=== PATIENT | female | born 1970 | race Caucasian/White ===

== ENCOUNTER → 2016-12-04 | Outpatient (CLI) | payer OTHER ==
--- NOTE | 2016-12-05 02:38 | REP ---
Clinical: bronchitis . Comparison: 03/01/2015 . Technique: PA and lateral. Findings: The mediastinum and cardiac silhouette are normal. The lung mancia are clear and without acute consolidation, effusion, or pneumothorax. The skeletal structures are intact and normal. Impression: 1. No acute cardiopulmonary process. Signed by Franklin Baez MD 12/05/2016 02:29 A
== END ==
LOC: M RAD 12:52
PROVIDERS: ATTEND Family Medicine
DX: R91.8 Other nonspecific abnormal finding of lung field (principal)

== ENCOUNTER → 2016-12-04 | Outpatient (REF) | payer OTHER ==
[2016-12-04 12:35] LABS: BASO % 0.6 % (0.0-1.0); EOS # 0.2 K/mm3 (0.0-0.50); EOS % 2.4 % (0.0-3.0); LARGE UNSTAINED CELL # 0.1 K/mm3 (0.0-0.4); LARGE UNSTAINED CELL % 1.5 % (0.0-4.0); LYMPH # 2.5 K/mm3 (1.5-4.5); LYMPH % 29.3 % (24.0-44.0); MEAN CORPUSCULAR HEMOGLOBIN 31.5 pg (27.0-33.0); MEAN CORPUSCULAR HGB CONC 34.2 g/dl (32.0-36.5); MONO # 0.5 K/mm3 (0.0-0.8); MONO % 6.1 % (0.0-5.0); NEUTROPHILS # 4.8 K/mm3 (1.8-7.7); PLATELET COUNT, AUTOMATED 399 k/mm3 (150-450); RED CELL DISTRIBUTION WIDTH 12.3 % (11.5-14.5); WHITE BLOOD COUNT 8.1 K/mm3 (4.0-10.0)
[2016-12-04 13:23] LABS: ALBUMIN 3.7 GM/DL (3.2-5.2); ALBUMIN/GLOBULIN RATIO 1.12 (1.00-1.93); ALKALINE PHOSPHATASE 70 U/L (45-117); ALT/SGPT 19 U/L (12-78); ANION GAP 9 MEQ/L (8-16); AST/SGOT 17 U/L (15-37); BILIRUBIN,TOTAL 0.9 MG/DL (0.2-1.0); BLOOD UREA NITROGEN 18 MG/DL (7-18); CALCIUM LEVEL 9.1 MG/DL (8.5-10.1); CARBON DIOXIDE LEVEL 28 MEQ/L (21-32); CHLORIDE LEVEL 102 MEQ/L (98-107); CHOLESTEROL LEVEL 211 MG/DL (<200); GLOMERULAR FILTRATION RATE > 60.0 (>58); GLUCOSE, FASTING 83 MG/DL (70-105); POTASSIUM SERUM 4.5 MEQ/L (3.5-5.1); SODIUM LEVEL 139 MEQ/L (136-145); TRIGLYCERIDES LEVEL 113 MG/DL (<150)
== END ==
LOC: M SFHCADAM 10:40
PROVIDERS: ATTEND Family Medicine
DX: Z13.220 Encounter for screening for lipoid disorders (principal); Z11.4 Encounter for screening for human immunodeficiency virus [HIV]; R05 Cough

== ENCOUNTER → 2016-12-09 | Outpatient (CLI) | payer OTHER ==
--- NOTE | 2016-12-09 12:58 | REPMRS ---
Patient History The patient states she has not had a clinical breast exam in over a year. denied. Family history of breast cancer in mother and breast cancer in maternal grandmother. Digital Mammo Screening Bilat: December 09, 2016 - Exam #: [id number] Bilateral CC and MLO view(s) were taken. Technologist: Karin Babb, Technologist Prior study comparison: March 14, 2014, left breast digital mammo diagnostic unilateral performed at [facility]. 2013, digital bilateral screening mammo, performed at [facility]. FINDINGS: The breast tissue is heterogeneously dense. This may lower the sensitivity of mammography. There has been no change in the appearance of the mammogram from the prior studies. There is a moderate amount of residual fibroglandular tissue which is fairly symmetric. There is no interval development of dominant mass, areas of architectural distortion, or clustered microcalcification typical of malignancy. ASSESSMENT: BI-RADS/ACR category 1 mammogram. Negative. I would recommend MRI of the breasts, given the dense breast parenchyma and family history. Recommendation Routine screening mammogram in 1 year (for women over age 40). This mammogram was interpreted with the aid of an FDA-approved computer-aided dectection system. Electronically Signed By: Christiano Mackey MD 12/09/16 [id number]
== END ==
LOC: M RAD 09:55
PROVIDERS: ATTEND Family Medicine
DX: Z12.31 Encounter for screening mammogram for malignant neoplasm of breast (principal)

== ENCOUNTER 2021-10-14 12:59 | Emergency (ER) | payer BC, OTHER, SELFPAY ==
[2021-10-14 13:00] VITALS: BP 140/90
[2021-10-14] MEDS ORDERED: METR-265 PO (14:17)
[2021-10-14] MEDS ORDERED: CIPR250T3 PO (14:17)
== END 2021-10-14 15:00 | disposition home or self-care (01) ==
LOC: M ED 12:59
DX: K57.92 Diverticulitis of intestine, part unspecified, without perforation or abscess without bleeding (principal); R10.32 Left lower quadrant pain; F10.10 Alcohol abuse, uncomplicated

== ENCOUNTER 2021-10-18 20:47 | Inpatient (IN) | payer BC ==
[~2021-10-18] VITALS: Ht 160 cm; Wt 70.0 kg
[~2021-10-18 20:47] MED LIST: CIPR250T3 PO; METR-265 PO
[2021-10-18] MEDS ORDERED: IBUP-1022 PO (21:00)
[2021-10-18 21:58] LABS: BASO % 0.3 % (0.0-1.0); EOS # 0.1 10^3/uL (0.0-0.5); EOS % 0.5 % (0.0-3.0); HEMATOCRIT 41.3 % (36.0-47.0); HEMOGLOBIN 14.6 g/dl (12.0-15.5); LYMPH # 1.3 10^3/uL (1.5-5.0); LYMPH % 9.1 % (24.0-44.0); MEAN CORPUSCULAR HEMOGLOBIN 31.8 pg (27.0-33.0); MEAN CORPUSCULAR HGB CONC 35.4 g/dl (32.0-36.5); MONO # 0.8 10^3/uL (0.0-0.8); MONO % 5.2 % (2.0-8.0); NEUTROPHILS # 12.4 10^3/uL (1.5-8.5); NEUTROPHILS % 84.5 % (36.0-66.0); PLATELET COUNT, AUTOMATED 417 10^3/uL (150-450); RED BLOOD COUNT 4.59 10^6/uL (4.00-5.40); WHITE BLOOD COUNT 14.6 10^3/uL (4.0-10.0)
[2021-10-18 22:24] LABS: ALBUMIN 3.6 GM/DL (3.2-5.2); BILIRUBIN,DIRECT 0.2 MG/DL (0.0-0.2); BILIRUBIN,TOTAL 0.5 MG/DL (0.2-1.0); CALCIUM LEVEL 8.9 MG/DL (8.5-10.1); CREATININE FOR GFR 2.54 MG/DL (0.55-1.30); GLOMERULAR FILTRATION RATE 21.2 (>51); POTASSIUM SERUM 3.5 MEQ/L (3.5-5.1); TOTAL PROTEIN 6.8 GM/DL (6.4-8.2)
[2021-10-18] MEDS ORDERED: ONDANSETRON 4MG/2ML VIAL IV ONE (23:30)
[2021-10-18] MEDS ORDERED: MORPHINE 4 MG/ML 1ML VIAL/SYRINGE IV ONE (23:35)
[2021-10-18] MEDS ORDERED: GASTROGRAFIN SOLUTION 30ML PO SCH (23:55)
[2021-10-18] MEDS ORDERED: NS 1,000 ML IV ONE ×2 (23:55)
[2021-10-19] MEDS: READI-CAT 2 PO SCH ×2 (00:23→01:19)
[2021-10-19] MEDS ORDERED: METOCLOPRAMIDE INJ 10MG/2ML VIAL (J2765 PER 1) IV ONE ×2 (01:20→01:35)
[2021-10-19] MEDS ORDERED: METR-265 PO (02:04)
[2021-10-19] MEDS ORDERED: CIPR500T39 PO (02:04)
[2021-10-19] MEDS ORDERED: IBUP80TA PO (02:10)
[2021-10-19] MEDS ORDERED: HOME MED LIST COMPLETE! XX SCH (02:15)
[2021-10-19] MEDS ORDERED: PIPERACILLIN/TAZOBACTAM SOD 3.375 GM in D5W MINI-BAG PLUS 50 ML IV ONE (03:10)
[2021-10-19] MEDS ORDERED: cefTRIAXone SOD 1 GM in D5W MINI-BAG PLUS 50 ML IV ONE (03:20)
[2021-10-19] MEDS ORDERED: KETOROLAC 30 MG/ML 1ML VIAL IV PRN (03:20)
[2021-10-19] MEDS ORDERED: MORPHINE 4 MG/ML 1ML VIAL/SYRINGE IV PRN (03:20)
[2021-10-19 03:43] LABS: RSV AMPLIFICATION NEGATIVE (NEGATIVE)
[2021-10-19 04:02] LABS: HEMATOCRIT 39.1 % (36.0-47.0); HEMOGLOBIN 13.3 g/dl (12.0-15.5); MEAN CORPUSCULAR HEMOGLOBIN 31.5 pg (27.0-33.0); MEAN CORPUSCULAR VOLUME 92.7 fl (80.0-96.0); PLATELET COUNT, AUTOMATED 363 10^3/uL (150-450); RED BLOOD COUNT 4.22 10^6/uL (4.00-5.40)
[2021-10-19 04:27] LABS: CALCIUM LEVEL 7.7 MG/DL (8.5-10.1); CREATININE FOR GFR 1.99 MG/DL (0.55-1.30); GLOMERULAR FILTRATION RATE 28.1 (>51); POTASSIUM SERUM 3.3 MEQ/L (3.5-5.1)
[2021-10-19] MEDS: NS 1,000 ML IV SCH ×3 (04:38→10:56)
[2021-10-19 05:11] VITALS: BP 152/88
[2021-10-19] MEDS: ONDANSETRON 4MG/2ML VIAL IV PRN ×2 (06:28→22:43)
[2021-10-19 06:40] LABS: CALCIUM LEVEL 8.2 MG/DL (8.5-10.1); CREATININE FOR GFR 2.13 MG/DL (0.55-1.30); POTASSIUM SERUM 3.4 MEQ/L (3.5-5.1)
[2021-10-19] MEDS: PANTOPRAZOLE 40MG VIAL IV SCH (07:53)
[2021-10-19] MEDS: MORPHINE 4 MG/ML 1ML VIAL/SYRINGE IV PRN ×3 (07:55→22:44)
[2021-10-19 10:00] VITALS: BP 134/92
[2021-10-19] MEDS: PIPERACILLIN/TAZOBACTAM SOD 3.375 GM in D5W MINI-BAG PLUS 50 ML IV SCH ×3 (10:56→22:43)
[2021-10-19 14:00] VITALS: BP 139/90
[2021-10-19] MEDS: KCL 40MEQ in NS 1000ML 1,000 ML IV SCH ×2 (14:24→21:19)
[2021-10-19 18:00] VITALS: BP 151/80
[2021-10-19 22:00] VITALS: BP 138/98
[2021-10-20 02:00] VITALS: BP 141/85
[2021-10-20] MEDS: PIPERACILLIN/TAZOBACTAM SOD 3.375 GM in D5W MINI-BAG PLUS 50 ML IV SCH ×4 (04:50→23:21)
[2021-10-20] MEDS: KCL 40MEQ in NS 1000ML 1,000 ML IV SCH ×2 (04:50→11:48)
[2021-10-20 06:00] VITALS: BP 145/92
[2021-10-20] MEDS: MORPHINE 4 MG/ML 1ML VIAL/SYRINGE IV PRN (06:05)
[2021-10-20] MEDS: ONDANSETRON 4MG/2ML VIAL IV PRN (06:05)
[2021-10-20 06:51] LABS: HEMATOCRIT 36.5 % (36.0-47.0); HEMOGLOBIN 12.4 g/dl (12.0-15.5); MEAN CORPUSCULAR HEMOGLOBIN 31.8 pg (27.0-33.0); MEAN CORPUSCULAR VOLUME 93.6 fl (80.0-96.0); PLATELET COUNT, AUTOMATED 292 10^3/uL (150-450); WHITE BLOOD COUNT 7.6 10^3/uL (4.0-10.0)
[2021-10-20 07:24] LABS: CALCIUM LEVEL 7.9 MG/DL (8.5-10.1); CREATININE FOR GFR 1.39 MG/DL (0.55-1.30); GLOMERULAR FILTRATION RATE 42.6 (>51); POTASSIUM SERUM 4.1 MEQ/L (3.5-5.1)
[2021-10-20] MEDS: PANTOPRAZOLE 40MG VIAL IV SCH (09:08)
[2021-10-20 10:00] VITALS: BP 150/90
[2021-10-20 14:00] VITALS: BP 138/82
[2021-10-20] MEDS: KETOROLAC 30 MG/ML 1ML VIAL IV SCH ×2 (15:31→20:39)
[2021-10-20 18:00] VITALS: BP 159/80
[2021-10-20 22:00] VITALS: BP 158/82
[2021-10-21] VITALS (7 sets, daily range): BP systolic 130–182; BP diastolic 82–101
[2021-10-21] MEDS: PIPERACILLIN/TAZOBACTAM SOD 3.375 GM in D5W MINI-BAG PLUS 50 ML IV SCH ×4 (04:08→22:08)
[2021-10-21] MEDS: KETOROLAC 30 MG/ML 1ML VIAL IV SCH ×4 (04:09→22:08)
[2021-10-21] MEDS: ONDANSETRON 4MG/2ML VIAL IV PRN ×2 (06:04→17:29)
[2021-10-21 06:06] LABS: HEMATOCRIT 35.2 % (36.0-47.0); HEMOGLOBIN 11.9 g/dl (12.0-15.5); MEAN CORPUSCULAR HEMOGLOBIN 31.8 pg (27.0-33.0); MEAN CORPUSCULAR HGB CONC 33.8 g/dl (32.0-36.5); MEAN CORPUSCULAR VOLUME 94.1 fl (80.0-96.0); PLATELET COUNT, AUTOMATED 302 10^3/uL (150-450); RED BLOOD COUNT 3.74 10^6/uL (4.00-5.40); WHITE BLOOD COUNT 7.9 10^3/uL (4.0-10.0)
[2021-10-21 06:35] LABS: CALCIUM LEVEL 8.1 MG/DL (8.5-10.1); CREATININE FOR GFR 1.18 MG/DL (0.55-1.30); GLOMERULAR FILTRATION RATE 51.4 (>51); POTASSIUM SERUM 4.4 MEQ/L (3.5-5.1)
[2021-10-21] MEDS: PANTOPRAZOLE 40MG VIAL IV SCH (07:45)
[2021-10-21 13:20] LABS: CK-MB VALUE MASS < 1.0 NG/ML (<3.6); CPK CREATINE PHOSPHOKINASE 58 U/L (26-192); MB/CK RELATIVE INDEX 1.72 (< OR =4)
[2021-10-21 13:28] LABS: FREE T4 1.21 NG/DL (0.76-1.46); THYROID STIMULATING HORMONE 1.25 uIU/ML (0.358-3.740)
[2021-10-21] MEDS: KCL 40MEQ in NS 1000ML 1,000 ML IV SCH ×2 (13:59→20:55)
[2021-10-21] MEDS: amLODIPine 5 MG TAB PO SCH (13:59)
[2021-10-21] MEDS: MORPHINE 4 MG/ML 1ML VIAL/SYRINGE IV PRN (17:34)
[2021-10-22 02:00] VITALS: BP 132/82
[2021-10-22] MEDS: PIPERACILLIN/TAZOBACTAM SOD 3.375 GM in D5W MINI-BAG PLUS 50 ML IV SCH ×4 (04:06→22:26)
[2021-10-22] MEDS: KETOROLAC 30 MG/ML 1ML VIAL IV SCH ×4 (04:06→22:26)
[2021-10-22 06:00] VITALS: BP 122/82
[2021-10-22 06:14] LABS: HEMATOCRIT 34.2 % (36.0-47.0); HEMOGLOBIN 11.6 g/dl (12.0-15.5); MEAN CORPUSCULAR HEMOGLOBIN 31.5 pg (27.0-33.0); MEAN CORPUSCULAR HGB CONC 33.9 g/dl (32.0-36.5); MEAN CORPUSCULAR VOLUME 92.9 fl (80.0-96.0); PLATELET COUNT, AUTOMATED 336 10^3/uL (150-450); RED BLOOD COUNT 3.68 10^6/uL (4.00-5.40); WHITE BLOOD COUNT 8.4 10^3/uL (4.0-10.0)
[2021-10-22 06:33] LABS: BLOOD UREA NITROGEN 10 MG/DL (7-18); CALCIUM LEVEL 7.8 MG/DL (8.5-10.1); CARBON DIOXIDE LEVEL 23 MEQ/L (21-32); CHLORIDE LEVEL 108 MEQ/L (98-107); GLOMERULAR FILTRATION RATE > 60.0 (>51); GLUCOSE, FASTING 84 MG/DL (70-100); POTASSIUM SERUM 4.2 MEQ/L (3.5-5.1); SODIUM LEVEL 139 MEQ/L (136-145)
[2021-10-22] MEDS: PANTOPRAZOLE 40MG VIAL IV SCH (08:39)
[2021-10-22] MEDS: amLODIPine 5 MG TAB PO SCH (08:46)
[2021-10-22 10:00] VITALS: BP 122/79
[2021-10-22 14:00] VITALS: BP 130/80
[2021-10-22] MEDS: KCL 40MEQ in NS 1000ML 1,000 ML IV SCH (15:23)
[2021-10-22 18:00] VITALS: BP 127/78
[2021-10-22 22:00] VITALS: BP 128/78
[2021-10-23 02:00] VITALS: BP 142/80
[2021-10-23] MEDS: KETOROLAC 30 MG/ML 1ML VIAL IV SCH ×4 (03:02→21:28)
[2021-10-23] MEDS: PIPERACILLIN/TAZOBACTAM SOD 3.375 GM in D5W MINI-BAG PLUS 50 ML IV SCH ×4 (05:15→23:08)
[2021-10-23 06:00] VITALS: BP 136/78
[2021-10-23 07:26] LABS: HEMATOCRIT 32.9 % (36.0-47.0); HEMOGLOBIN 11.4 g/dl (12.0-15.5); MEAN CORPUSCULAR HEMOGLOBIN 31.8 pg (27.0-33.0); MEAN CORPUSCULAR HGB CONC 34.7 g/dl (32.0-36.5); MEAN CORPUSCULAR VOLUME 91.9 fl (80.0-96.0); PLATELET COUNT, AUTOMATED 363 10^3/uL (150-450); RED BLOOD COUNT 3.58 10^6/uL (4.00-5.40); WHITE BLOOD COUNT 7.4 10^3/uL (4.0-10.0)
[2021-10-23 07:55] LABS: BLOOD UREA NITROGEN 8 MG/DL (7-18); CALCIUM LEVEL 7.9 MG/DL (8.5-10.1); CARBON DIOXIDE LEVEL 22 MEQ/L (21-32); CHLORIDE LEVEL 105 MEQ/L (98-107); CREATININE FOR GFR 0.74 MG/DL (0.55-1.30); GLOMERULAR FILTRATION RATE > 60.0 (>51); GLUCOSE, FASTING 65 MG/DL (70-100); POTASSIUM SERUM 4.2 MEQ/L (3.5-5.1); SODIUM LEVEL 138 MEQ/L (136-145)
[2021-10-23] MEDS: PANTOPRAZOLE 40MG VIAL IV SCH (08:53)
[2021-10-23] MEDS: amLODIPine 5 MG TAB PO SCH (08:57)
[2021-10-23 10:00] VITALS: BP 138/80
[2021-10-23 14:00] VITALS: BP 130/78
[2021-10-23] MEDS: KCL 40MEQ in NS 1000ML 1,000 ML IV SCH (15:44)
[2021-10-23 18:00] VITALS: BP 130/79
[2021-10-23 22:00] VITALS: BP 152/92
[2021-10-24 02:00] VITALS: BP 142/68
[2021-10-24] MEDS: KETOROLAC 30 MG/ML 1ML VIAL IV SCH ×2 (02:11→10:23)
[2021-10-24] MEDS: PIPERACILLIN/TAZOBACTAM SOD 3.375 GM in D5W MINI-BAG PLUS 50 ML IV SCH ×4 (04:59→22:27)
[2021-10-24 05:30] VITALS: BP 142/66
[2021-10-24 05:59] LABS: HEMOGLOBIN 11.9 g/dl (12.0-15.5); MEAN CORPUSCULAR HEMOGLOBIN 31.6 pg (27.0-33.0); MEAN CORPUSCULAR VOLUME 90.4 fl (80.0-96.0); PLATELET COUNT, AUTOMATED 371 10^3/uL (150-450); RED BLOOD COUNT 3.76 10^6/uL (4.00-5.40); WHITE BLOOD COUNT 5.4 10^3/uL (4.0-10.0)
[2021-10-24 06:23] LABS: BLOOD UREA NITROGEN 5 MG/DL (7-18); CALCIUM LEVEL 8.4 MG/DL (8.5-10.1); CARBON DIOXIDE LEVEL 25 MEQ/L (21-32); CHLORIDE LEVEL 107 MEQ/L (98-107); CREATININE FOR GFR 0.69 MG/DL (0.55-1.30); GLOMERULAR FILTRATION RATE > 60.0 (>51); GLUCOSE, FASTING 76 MG/DL (70-100); POTASSIUM SERUM 4.1 MEQ/L (3.5-5.1); SODIUM LEVEL 141 MEQ/L (136-145)
[2021-10-24] MEDS: amLODIPine 5 MG TAB PO SCH (10:22)
[2021-10-24] MEDS: PANTOPRAZOLE 40MG VIAL IV SCH (10:23)
[2021-10-24] MEDS: KCL 40MEQ in NS 1000ML 1,000 ML IV SCH (10:28)
[2021-10-24] MEDS ORDERED: ISOVUE-370 76% 100ML VIAL As Ordered ONE (11:31)
[2021-10-24] MEDS: GASTROGRAFIN SOLUTION 30ML PO SCH ×2 (11:37→12:08)
[2021-10-24 14:00] VITALS: BP 142/88
[2021-10-24 22:00] VITALS: BP 158/88
[2021-10-25] MEDS: PIPERACILLIN/TAZOBACTAM SOD 3.375 GM in D5W MINI-BAG PLUS 50 ML IV SCH ×4 (05:03→22:44)
[2021-10-25 05:30] VITALS: BP 142/84
[2021-10-25 06:16] LABS: HEMATOCRIT 36.1 % (36.0-47.0); HEMOGLOBIN 12.3 g/dl (12.0-15.5); MEAN CORPUSCULAR HEMOGLOBIN 31.1 pg (27.0-33.0); MEAN CORPUSCULAR HGB CONC 34.1 g/dl (32.0-36.5); MEAN CORPUSCULAR VOLUME 91.2 fl (80.0-96.0); PLATELET COUNT, AUTOMATED 441 10^3/uL (150-450); RED BLOOD COUNT 3.96 10^6/uL (4.00-5.40); WHITE BLOOD COUNT 5.1 10^3/uL (4.0-10.0)
[2021-10-25 06:35] LABS: BLOOD UREA NITROGEN 4 MG/DL (7-18); CALCIUM LEVEL 8.5 MG/DL (8.5-10.1); CARBON DIOXIDE LEVEL 28 MEQ/L (21-32); CHLORIDE LEVEL 103 MEQ/L (98-107); CREATININE FOR GFR 0.72 MG/DL (0.55-1.30); GLOMERULAR FILTRATION RATE > 60.0 (>51); GLUCOSE, FASTING 67 MG/DL (70-100); SODIUM LEVEL 139 MEQ/L (136-145)
[2021-10-25] MEDS: amLODIPine 5 MG TAB PO SCH (09:03)
[2021-10-25] MEDS: PANTOPRAZOLE 40MG VIAL IV SCH (09:03)
[2021-10-25 14:00] VITALS: BP 138/79
[2021-10-25 18:00] VITALS: BP 140/80
[2021-10-25 22:00] VITALS: BP 132/84
[2021-10-26] MEDS: PIPERACILLIN/TAZOBACTAM SOD 3.375 GM in D5W MINI-BAG PLUS 50 ML IV SCH (04:42)
[2021-10-26 06:00] VITALS: BP 136/82
[2021-10-26 09:37] VITALS: BP 134/72
[2021-10-26] MEDS: amLODIPine 5 MG TAB PO SCH (09:37)
[2021-10-26] MEDS: PANTOPRAZOLE 40MG VIAL IV SCH (09:38)
[2021-10-26] MEDS: metroNIDAZOLE (FLAGYL) 500MG TABLET PO SCH ×2 (13:29→21:20)
[2021-10-26] MEDS: PANTOPRAZOLE 40MG TAB (PROTONIX) PO SCH (13:29)
[2021-10-26 14:00] VITALS: BP 134/92
[2021-10-26] MEDS: IBUPROFEN 600MG TAB PO PRN (18:17)
[2021-10-26] MEDS: ACETAMINOPHEN TAB 650MG DOSE (2X325MG) PO PRN (19:54)
[2021-10-26] MEDS: AUGMENTIN 875 MG TAB PO SCH (21:20)
[2021-10-26 22:00] VITALS: BP 130/80
[2021-10-27 06:00] VITALS: BP 130/80
[2021-10-27] MEDS: metroNIDAZOLE (FLAGYL) 500MG TABLET PO SCH ×3 (06:06→22:22)
[2021-10-27] MEDS: PANTOPRAZOLE 40MG TAB (PROTONIX) PO SCH (08:37)
[2021-10-27] MEDS: AUGMENTIN 875 MG TAB PO SCH ×2 (08:37→22:22)
[2021-10-27] MEDS: IBUPROFEN 600MG TAB PO PRN (08:37)
[2021-10-27] MEDS: ACETAMINOPHEN TAB 650MG DOSE (2X325MG) PO PRN (11:03)
[2021-10-27 14:00] VITALS: BP 134/78
[2021-10-27 19:00] VITALS: BP 126/78
[2021-10-27 22:00] VITALS: BP 132/78
[2021-10-28] MEDS: metroNIDAZOLE (FLAGYL) 500MG TABLET PO SCH ×2 (05:39→13:56)
[2021-10-28 06:00] VITALS: BP 134/76
[2021-10-28] MEDS: AUGMENTIN 875 MG TAB PO SCH (09:28)
[2021-10-28] MEDS: PANTOPRAZOLE 40MG TAB (PROTONIX) PO SCH (09:28)
[2021-10-28] MEDS ORDERED: AMOX875T2 PO (11:49)
== END 2021-10-28 14:17 | disposition home or self-care (01) | DRG 244 ==
LOC: M ED 20:47 → M ED INP 10-19 03:16 → M MSPAV 10-19 05:11
PROVIDERS: ADMIT Surgery; ATTEND Internal Medicine Nephrology
DX: K57.20 Diverticulitis of large intestine with perforation and abscess without bleeding (principal); N17.9 Acute kidney failure, unspecified; I10 Essential (primary) hypertension; R00.1 Bradycardia, unspecified

== ENCOUNTER 2021-11-08 10:07 | Inpatient (IN) | payer BC ==
[~2021-11-08] VITALS: Ht 160 cm; Wt 68.0 kg
[~2021-11-08 10:07] MED LIST changes: +AMOX875T2 PO; +CIPR500T39 PO; +IBUP-1022 PO; +IBUP80TA PO
[2021-11-08] MEDS ORDERED: NS 1,000 ML IV ONE (11:15)
[2021-11-08 11:48] LABS: BASO # 0.1 10^3/uL (0.0-0.2); BASO % 0.6 % (0.0-1.0); EOS # 0.3 10^3/uL (0.0-0.5); EOS % 2.9 % (0.0-3.0); HEMATOCRIT 39.3 % (36.0-47.0); HEMOGLOBIN 13.5 g/dl (12.0-15.5); LYMPH # 1.4 10^3/uL (1.5-5.0); LYMPH % 13.6 % (24.0-44.0); MEAN CORPUSCULAR HEMOGLOBIN 31.7 pg (27.0-33.0); MEAN CORPUSCULAR HGB CONC 34.4 g/dl (32.0-36.5); MEAN CORPUSCULAR VOLUME 92.3 fl (80.0-96.0); MONO # 0.6 10^3/uL (0.0-0.8); NEUTROPHILS # 7.7 10^3/uL (1.5-8.5); NEUTROPHILS % 76.5 % (36.0-66.0); PLATELET COUNT, AUTOMATED 376 10^3/uL (150-450); RED BLOOD COUNT 4.26 10^6/uL (4.00-5.40)
[2021-11-08 11:59] LABS: INR 0.81; PARTIAL THROMBOPLASTIN TIME 27.8 SECONDS (25.9-37.0); PROTHROMBIN TIME 11.6 SECONDS (12.7-14.5)
[2021-11-08] MEDS: GASTROGRAFIN SOLUTION 30ML PO SCH ×2 (12:00→13:15)
[2021-11-08 12:12] LABS: ALBUMIN 3.1 GM/DL (3.2-5.2); ALT/SGPT 24 U/L (12-78); BILIRUBIN,DIRECT < 0.1 MG/DL (0.0-0.2); BILIRUBIN,TOTAL 0.2 MG/DL (0.2-1.0); LIPASE 232 U/L (73-393); TOTAL PROTEIN 6.7 GM/DL (6.4-8.2)
[2021-11-08] MEDS ORDERED: ISOVUE-370 76% 100ML VIAL As Ordered ONE (12:28)
[2021-11-08] MEDS ORDERED: ONDANSETRON 4MG/2ML VIAL IV ONE (15:25)
[2021-11-08] MEDS: HYDROMORPHONE HCL 0.5 MG/ 0.5 ML SYRINGE (J1170 PER 1) IV PRN ×2 (15:28→17:04)
[2021-11-08] MEDS ORDERED: PIPERACILLIN/TAZOBACTAM SOD 3.375 GM in D5W MINI-BAG PLUS 50 ML IV ONE (15:35)
[2021-11-08] MEDS ORDERED: cefTRIAXone SOD 2 GM in D5W MINI-BAG PLUS 50 ML IV ONE (15:35)
[2021-11-08] MEDS: NS 1,000 ML IV SCH (15:55)
[2021-11-08] MEDS ORDERED: MORPHINE 2 MG/ML 1ML VIAL IV PRN ×2 (15:55)
[2021-11-08] MEDS ORDERED: HOME MED LIST COMPLETE! XX SCH (16:30)
[2021-11-08] MEDS: KETOROLAC 30 MG/ML 1ML VIAL IV SCH ×2 (18:00→23:03)
[2021-11-08 18:45] VITALS: BP 112/58
[2021-11-08] MEDS: DOCUSATE SODIUM 100MG CAPSULE PO SCH (21:26)
[2021-11-08] MEDS: PIPERACILLIN/TAZOBACTAM SOD 3.375 GM in D5W MINI-BAG PLUS 50 ML IV SCH (21:26)
[2021-11-08 21:28] VITALS: BP 138/88
[2021-11-09] MEDS: HYDROMORPHONE HCL 0.5 MG/ 0.5 ML SYRINGE (J1170 PER 1) IV PRN ×4 (00:15→18:37)
[2021-11-09] MEDS: ONDANSETRON 4MG/2ML VIAL IV PRN ×5 (00:19→21:47)
[2021-11-09 01:58] VITALS: BP 110/88
[2021-11-09] MEDS: PIPERACILLIN/TAZOBACTAM SOD 3.375 GM in D5W MINI-BAG PLUS 50 ML IV SCH ×4 (03:25→21:47)
[2021-11-09] MEDS: NS 1,000 ML IV SCH ×3 (03:25→20:34)
[2021-11-09] MEDS: KETOROLAC 30 MG/ML 1ML VIAL IV SCH ×4 (05:43→23:29)
[2021-11-09 05:50] VITALS: BP 106/78
[2021-11-09 07:40] LABS: HEMOGLOBIN 12.1 g/dl (12.0-15.5); MEAN CORPUSCULAR HEMOGLOBIN 30.9 pg (27.0-33.0); MEAN CORPUSCULAR HGB CONC 33.6 g/dl (32.0-36.5); MEAN CORPUSCULAR VOLUME 91.8 fl (80.0-96.0); PLATELET COUNT, AUTOMATED 277 10^3/uL (150-450); RED BLOOD COUNT 3.92 10^6/uL (4.00-5.40); WHITE BLOOD COUNT 9.8 10^3/uL (4.0-10.0)
[2021-11-09 07:59] LABS: BLOOD UREA NITROGEN 13 MG/DL (7-18); CALCIUM LEVEL 8.1 MG/DL (8.5-10.1); CARBON DIOXIDE LEVEL 27 MEQ/L (21-32); CHLORIDE LEVEL 110 MEQ/L (98-107); CREATININE FOR GFR 0.65 MG/DL (0.55-1.30); GLOMERULAR FILTRATION RATE > 60.0 (>51); GLUCOSE, FASTING 106 MG/DL (70-100); POTASSIUM SERUM 3.6 MEQ/L (3.5-5.1); SODIUM LEVEL 142 MEQ/L (136-145)
[2021-11-09] MEDS: PANTOPRAZOLE 40MG VIAL IV SCH (09:31)
[2021-11-09] MEDS: DOCUSATE SODIUM 100MG CAPSULE PO SCH ×3 (09:31→21:47)
[2021-11-09 10:00] VITALS: BP 134/94
[2021-11-09] MEDS: ACETAMINOPHEN 500 MG TAB PO PRN (12:02)
[2021-11-09 14:00] VITALS: BP 122/84
[2021-11-09 18:00] VITALS: BP 122/84
[2021-11-09 22:00] VITALS: BP 156/102
[2021-11-09] MEDS ORDERED: MORPHINE 2 MG/ML 1ML VIAL IV ONE (22:00)
[2021-11-09] MEDS ORDERED: PROMETHAZINE 25MG/ML 1ML VIAL IV ONE (23:00)
[2021-11-10] VITALS (7 sets, daily range): BP systolic 96–150; BP diastolic 72–91
[2021-11-10] MEDS: HYDROMORPHONE HCL 0.5 MG/ 0.5 ML SYRINGE (J1170 PER 1) IV PRN ×4 (02:25→20:18)
[2021-11-10] MEDS: PIPERACILLIN/TAZOBACTAM SOD 3.375 GM in D5W MINI-BAG PLUS 50 ML IV SCH ×4 (04:13→21:42)
[2021-11-10] MEDS: KETOROLAC 30 MG/ML 1ML VIAL IV SCH ×3 (05:30→18:00)
[2021-11-10 06:59] LABS: HEMATOCRIT 35.1 % (36.0-47.0); HEMOGLOBIN 12.2 g/dl (12.0-15.5); MEAN CORPUSCULAR HGB CONC 34.8 g/dl (32.0-36.5); MEAN CORPUSCULAR VOLUME 92.1 fl (80.0-96.0); PLATELET COUNT, AUTOMATED 246 10^3/uL (150-450); RED BLOOD COUNT 3.81 10^6/uL (4.00-5.40); WHITE BLOOD COUNT 10.2 10^3/uL (4.0-10.0)
[2021-11-10 07:19] LABS: BLOOD UREA NITROGEN 10 MG/DL (7-18); CARBON DIOXIDE LEVEL 26 MEQ/L (21-32); CHLORIDE LEVEL 108 MEQ/L (98-107); CREATININE FOR GFR 0.68 MG/DL (0.55-1.30); GLOMERULAR FILTRATION RATE > 60.0 (>51); GLUCOSE, FASTING 98 MG/DL (70-100); POTASSIUM SERUM 3.2 MEQ/L (3.5-5.1); SODIUM LEVEL 142 MEQ/L (136-145)
[2021-11-10] MEDS: PROMETHAZINE 25MG/ML 1ML VIAL IV PRN ×3 (08:00→19:41)
[2021-11-10] MEDS: PANTOPRAZOLE 40MG VIAL IV SCH (08:33)
[2021-11-10] MEDS: NS 1,000 ML IV SCH ×4 (08:33→23:55)
[2021-11-10] MEDS: DOCUSATE SODIUM 100MG CAPSULE PO SCH ×2 (08:34→21:42)
[2021-11-10] MEDS: ACETAMINOPHEN 500 MG TAB PO PRN (13:13)
[2021-11-10] MEDS: SIMETHICONE 80MG CHEW TAB PO SCH ×2 (16:50→21:43)
[2021-11-11] VITALS: BP 118/78
[2021-11-11] MEDS: KETOROLAC 30 MG/ML 1ML VIAL IV SCH ×4 (00:22→18:18)
[2021-11-11] MEDS: PROMETHAZINE 25MG/ML 1ML VIAL IV PRN ×4 (00:23→20:54)
[2021-11-11] MEDS: HYDROMORPHONE HCL 0.5 MG/ 0.5 ML SYRINGE (J1170 PER 1) IV PRN ×4 (02:55→20:54)
[2021-11-11 04:00] VITALS: BP 112/77
[2021-11-11] MEDS: PIPERACILLIN/TAZOBACTAM SOD 3.375 GM in D5W MINI-BAG PLUS 50 ML IV SCH ×4 (04:06→22:06)
[2021-11-11] MEDS: NS 1,000 ML IV SCH ×2 (06:32→15:45)
[2021-11-11 06:51] LABS: HEMATOCRIT 32.5 % (36.0-47.0); HEMOGLOBIN 11.2 g/dl (12.0-15.5); MEAN CORPUSCULAR HGB CONC 34.5 g/dl (32.0-36.5); MEAN CORPUSCULAR VOLUME 92.9 fl (80.0-96.0); PLATELET COUNT, AUTOMATED 242 10^3/uL (150-450); WHITE BLOOD COUNT 9.4 10^3/uL (4.0-10.0)
[2021-11-11 07:16] LABS: BLOOD UREA NITROGEN 15 MG/DL (7-18); CALCIUM LEVEL 8.2 MG/DL (8.5-10.1); CARBON DIOXIDE LEVEL 24 MEQ/L (21-32); CHLORIDE LEVEL 110 MEQ/L (98-107); GLOMERULAR FILTRATION RATE > 60.0 (>51); GLUCOSE, FASTING 89 MG/DL (70-100); POTASSIUM SERUM 3.5 MEQ/L (3.5-5.1); SODIUM LEVEL 142 MEQ/L (136-145)
[2021-11-11 10:00] VITALS: BP 115/80
[2021-11-11] MEDS: SIMETHICONE 80MG CHEW TAB PO SCH ×4 (10:00→20:47)
[2021-11-11] MEDS: DOCUSATE SODIUM 100MG CAPSULE PO SCH ×2 (10:02→20:46)
[2021-11-11] MEDS: PANTOPRAZOLE 40MG VIAL IV SCH (10:03)
[2021-11-11 14:00] VITALS: BP 120/80
[2021-11-11 21:39] VITALS: BP 123/92
[2021-11-12] VITALS (8 sets, daily range): BP systolic 122–150; BP diastolic 86–99
[2021-11-12] MEDS: NS 1,000 ML IV SCH ×2 (01:48→08:55)
[2021-11-12] MEDS: KETOROLAC 30 MG/ML 1ML VIAL IV SCH ×4 (01:48→18:00)
[2021-11-12] MEDS: PIPERACILLIN/TAZOBACTAM SOD 3.375 GM in D5W MINI-BAG PLUS 50 ML IV SCH ×4 (04:06→22:32)
[2021-11-12] MEDS: PROMETHAZINE 25MG/ML 1ML VIAL IV PRN ×3 (04:15→22:32)
[2021-11-12] MEDS: HYDROMORPHONE HCL 0.5 MG/ 0.5 ML SYRINGE (J1170 PER 1) IV PRN ×2 (04:15→09:59)
[2021-11-12 08:14] LABS: HEMATOCRIT 29.9 % (36.0-47.0); MEAN CORPUSCULAR HEMOGLOBIN 31.3 pg (27.0-33.0); MEAN CORPUSCULAR HGB CONC 33.4 g/dl (32.0-36.5); MEAN CORPUSCULAR VOLUME 93.7 fl (80.0-96.0); PLATELET COUNT, AUTOMATED 226 10^3/uL (150-450); RED BLOOD COUNT 3.19 10^6/uL (4.00-5.40)
[2021-11-12 08:36] LABS: BLOOD UREA NITROGEN 14 MG/DL (7-18); CALCIUM LEVEL 7.9 MG/DL (8.5-10.1); CARBON DIOXIDE LEVEL 25 MEQ/L (21-32); CHLORIDE LEVEL 111 MEQ/L (98-107); CREATININE FOR GFR 0.56 MG/DL (0.55-1.30); GLOMERULAR FILTRATION RATE > 60.0 (>51); GLUCOSE, FASTING 72 MG/DL (70-100); POTASSIUM SERUM 3.1 MEQ/L (3.5-5.1); SODIUM LEVEL 144 MEQ/L (136-145)
[2021-11-12] MEDS: DOCUSATE SODIUM 100MG CAPSULE PO SCH ×2 (08:55→22:32)
[2021-11-12] MEDS: SIMETHICONE 80MG CHEW TAB PO SCH ×3 (08:56→17:00)
[2021-11-12] MEDS: PANTOPRAZOLE 40MG VIAL IV SCH (08:57)
[2021-11-12] MEDS ORDERED: FLUCONAZOLE 100 MG TAB PO SCH (09:00)
[2021-11-12] MEDS ORDERED: KCL 40MEQ in NS 1000ML 1,000 ML IV SCH (09:35)
[2021-11-12] MEDS ORDERED: KCL 10MEQ/100ML SWI (KRUN) 10 MEQ in IV 1 EA IV ONE (10:00)
[2021-11-12] MEDS: GASTROGRAFIN SOLUTION 30ML PO SCH ×2 (11:02→11:38)
[2021-11-12] MEDS: ACETAMINOPHEN 500 MG TAB PO PRN (11:12)
[2021-11-12] MEDS ORDERED: ISOVUE-370 76% 100ML VIAL As Ordered ONE (12:47)
[2021-11-12] MEDS ORDERED: GLUCAGON INJ 1MG VIAL As Ordered ONE (17:23)
[2021-11-12] MEDS ORDERED: SCOPOLAMINE 1MG TRANSDERMAL PATCH TOP ONE (17:55)
[2021-11-12] MEDS ORDERED: SCOPOLAMINE 1MG TRANSDERMAL PATCH As Ordered ONE (18:04)
[2021-11-12] MEDS ORDERED: SUGAMMADEX SODIUM 500 MG/5 ML VIAL (BRIDION) As Ordered ONE (18:54)
[2021-11-12] MEDS ORDERED: ONDANSETRON 4MG/2ML VIAL As Ordered ONE (18:54)
[2021-11-12] MEDS ORDERED: KETOROLAC 60MG 2ML VIAL As Ordered ONE (18:54)
[2021-11-12] MEDS ORDERED: ACETAMINOPHEN 1000MG 100ML IV BTL (OFIRMEV) (J0131 PER 10MG) As Ordered ONE (18:54)
[2021-11-12] MEDS ORDERED: LIDOCAINE 2% 100MG/5ML SDV (FOR ANES.) As Ordered ONE (18:54)
[2021-11-12] MEDS ORDERED: dexameTHASONE 4 MG/ML 1ML VIAL (J1100 PER 1MG) As Ordered ONE (18:54)
[2021-11-12] MEDS ORDERED: ROCURONIUM BROMIDE 50 MG/5 ML VIAL As Ordered ONE (18:54)
[2021-11-12] MEDS ORDERED: MIDAZOLAM INJ 2MG/2ML VIAL (J2250 PER 1MG) As Ordered ONE (18:54)
[2021-11-12] MEDS ORDERED: HYDROmorphone HCL 2MG/ML 1ML VIAL As Ordered ONE (18:54)
[2021-11-12] MEDS ORDERED: fentaNYL 100 MCG/2 ML INJECTION As Ordered ONE (18:55)
[2021-11-12] MEDS ORDERED: propofoL 200 MG/20 ML VIAL As Ordered ONE (18:55)
[2021-11-12] MEDS ORDERED: BUPIVACAINE HCL 0.25% 30ML VIAL As Ordered ONE (19:35)
[2021-11-12] MEDS ORDERED: BUPIVACAINE LIPOSOME/PF 1.3% 20ML VIAL (13.3MG/ML)(EXPAREL) As Ordered ONE (19:35)
[2021-11-12] MEDS ORDERED: IPRATROPIUM 0.5MG/ALBUTEROL 2.5MG INH SOL UD 3ML (DUONEB) NEB PRN (20:30)
[2021-11-12] MEDS ORDERED: HYDROMORPHONE HCL 0.5 MG/ 0.5 ML SYRINGE (J1170 PER 1) IV PRN (20:45)
[2021-11-12] MEDS ORDERED: oxyCODONE 5MG TAB PO PRN (20:45)
[2021-11-12] MEDS ORDERED: LR 1,000 ML IV SCH (20:45)
[2021-11-12] MEDS ORDERED: fentaNYL 100 MCG/2 ML INJECTION IV PRN (20:45)
[2021-11-12] MEDS ORDERED: ONDANSETRON 4MG/2ML VIAL IV PRN (20:45)
[2021-11-12] MEDS: ONDANSETRON 4MG/2ML VIAL IV PRN (21:01)
[2021-11-12] MEDS: KCL 40MEQ in NS 1000ML 1,000 ML IV SCH (22:31)
[2021-11-13] VITALS (7 sets, daily range): BP systolic 140–153; BP diastolic 89–99
[2021-11-13] MEDS: KETOROLAC 30 MG/ML 1ML VIAL IV SCH ×3 (00:13→12:09)
[2021-11-13] MEDS: HYDROMORPHONE HCL 0.5 MG/ 0.5 ML SYRINGE (J1170 PER 1) IV PRN ×5 (01:55→20:57)
[2021-11-13] MEDS: IPRATROPIUM 0.5MG/ALBUTEROL 2.5MG INH SOL UD 3ML (DUONEB) NEB SCH ×4 (02:00→19:16)
[2021-11-13] MEDS: KCL 40MEQ in NS 1000ML 1,000 ML IV SCH ×3 (03:05→17:36)
[2021-11-13] MEDS: PIPERACILLIN/TAZOBACTAM SOD 3.375 GM in D5W MINI-BAG PLUS 50 ML IV SCH ×4 (04:09→20:56)
[2021-11-13 07:11] LABS: HEMATOCRIT 31.2 % (36.0-47.0); HEMOGLOBIN 10.5 g/dl (12.0-15.5); MEAN CORPUSCULAR HEMOGLOBIN 30.7 pg (27.0-33.0); MEAN CORPUSCULAR HGB CONC 33.7 g/dl (32.0-36.5); MEAN CORPUSCULAR VOLUME 91.2 fl (80.0-96.0); PLATELET COUNT, AUTOMATED 276 10^3/uL (150-450); RED BLOOD COUNT 3.42 10^6/uL (4.00-5.40); WHITE BLOOD COUNT 10.9 10^3/uL (4.0-10.0)
[2021-11-13 08:02] LABS: BLOOD UREA NITROGEN 9 MG/DL (7-18); CALCIUM LEVEL 7.7 MG/DL (8.5-10.1); CARBON DIOXIDE LEVEL 24 MEQ/L (21-32); CHLORIDE LEVEL 110 MEQ/L (98-107); CREATININE FOR GFR 0.48 MG/DL (0.55-1.30); GLOMERULAR FILTRATION RATE > 60.0 (>51); GLUCOSE, FASTING 138 MG/DL (70-100); SODIUM LEVEL 142 MEQ/L (136-145)
[2021-11-13] MEDS ORDERED: FLUCONAZOLE 40MG/ML ORAL SUSP 35ML **DRAW UP EXACT DOSE NG SCH (09:00)
[2021-11-13] MEDS: DOCUSATE SODIUM 100MG CAPSULE PO SCH ×2 (09:42→20:56)
[2021-11-13] MEDS: PROMETHAZINE 25MG/ML 1ML VIAL IV PRN ×5 (09:43→21:10)
[2021-11-13] MEDS: PANTOPRAZOLE 40MG VIAL IV SCH (09:43)
[2021-11-13] MEDS ORDERED: FLUCONAZOLE 100 MG TAB PO ONE (15:00)
[2021-11-14] MEDS: IPRATROPIUM 0.5MG/ALBUTEROL 2.5MG INH SOL UD 3ML (DUONEB) NEB SCH ×4 (00:52→19:37)
[2021-11-14 02:00] VITALS: BP 147/83
[2021-11-14] MEDS: KCL 40MEQ in NS 1000ML 1,000 ML IV SCH ×2 (02:18→09:29)
[2021-11-14] MEDS: PROMETHAZINE 25MG/ML 1ML VIAL IV PRN ×3 (03:48→15:32)
[2021-11-14] MEDS: PIPERACILLIN/TAZOBACTAM SOD 3.375 GM in D5W MINI-BAG PLUS 50 ML IV SCH ×4 (04:06→21:26)
[2021-11-14] MEDS: ONDANSETRON 4MG/2ML VIAL IV PRN (06:04)
[2021-11-14] MEDS: HYDROMORPHONE HCL 0.5 MG/ 0.5 ML SYRINGE (J1170 PER 1) IV PRN ×3 (06:04→16:07)
[2021-11-14 09:26] LABS: HEMATOCRIT 28.6 % (36.0-47.0); HEMOGLOBIN 9.7 g/dl (12.0-15.5); MEAN CORPUSCULAR HEMOGLOBIN 31.5 pg (27.0-33.0); MEAN CORPUSCULAR HGB CONC 33.9 g/dl (32.0-36.5); MEAN CORPUSCULAR VOLUME 92.9 fl (80.0-96.0); PLATELET COUNT, AUTOMATED 296 10^3/uL (150-450); RED BLOOD COUNT 3.08 10^6/uL (4.00-5.40); WHITE BLOOD COUNT 9.6 10^3/uL (4.0-10.0)
[2021-11-14] MEDS: PANTOPRAZOLE 40MG VIAL IV SCH (09:30)
[2021-11-14] MEDS: DOCUSATE SODIUM 100MG CAPSULE PO SCH ×2 (09:30→20:04)
[2021-11-14 09:48] LABS: BLOOD UREA NITROGEN 9 MG/DL (7-18); CARBON DIOXIDE LEVEL 24 MEQ/L (21-32); CHLORIDE LEVEL 116 MEQ/L (98-107); CREATININE FOR GFR 0.39 MG/DL (0.55-1.30); GLOMERULAR FILTRATION RATE > 60.0 (>51); GLUCOSE, FASTING 102 MG/DL (70-100); POTASSIUM SERUM 4.3 MEQ/L (3.5-5.1); SODIUM LEVEL 146 MEQ/L (136-145)
[2021-11-14 10:00] VITALS: BP 152/90
[2021-11-14] MEDS: KETOROLAC 30 MG/ML 1ML VIAL IV SCH ×3 (10:55→23:10)
[2021-11-14] MEDS ORDERED: LIDOCAINE 1% MDV 20ML VIAL As Ordered ONE (11:41)
[2021-11-14] MEDS ORDERED: FAMOTIDINE IV BAG 40 MG in IV 1 EA IV SCH (12:00)
[2021-11-14] MEDS: LR 1,000 ML IV SCH ×2 (13:39→18:19)
[2021-11-14] MEDS: FAMOTIDINE 20MG/2ML VIAL IV SCH ×2 (13:43→23:51)
[2021-11-14 14:00] VITALS: BP 150/104
[2021-11-14 18:00] VITALS: BP 178/110
[2021-11-14] MEDS: NITROGLYCERIN 2% OINT 1 GM *U/D* PKT TOP SCH ×2 (18:18→23:51)
[2021-11-14] MEDS: SODIUM CHLORIDE 0.9% INJ 10 ML SYR IV SCH (18:19)
[2021-11-14] MEDS: ACETAMINOPHEN 500 MG TAB PO PRN (20:04)
[2021-11-14 22:00] VITALS: BP 130/84
[2021-11-15] MEDS: IPRATROPIUM 0.5MG/ALBUTEROL 2.5MG INH SOL UD 3ML (DUONEB) NEB SCH ×4 (01:10→20:14)
[2021-11-15] MEDS: PROMETHAZINE 25MG/ML 1ML VIAL IV PRN ×4 (01:24→20:01)
[2021-11-15] MEDS: HYDROMORPHONE HCL 0.5 MG/ 0.5 ML SYRINGE (J1170 PER 1) IV PRN ×4 (01:54→20:36)
[2021-11-15 02:00] VITALS: BP 136/84
[2021-11-15] MEDS: PIPERACILLIN/TAZOBACTAM SOD 3.375 GM in D5W MINI-BAG PLUS 50 ML IV SCH ×4 (03:23→21:08)
[2021-11-15 05:32] VITALS: BP 136/88
[2021-11-15] MEDS: NITROGLYCERIN 2% OINT 1 GM *U/D* PKT TOP SCH (05:32)
[2021-11-15] MEDS: KETOROLAC 30 MG/ML 1ML VIAL IV SCH ×4 (05:33→22:41)
[2021-11-15] MEDS: SODIUM CHLORIDE 0.9% INJ 10 ML SYR IV SCH ×2 (05:34→17:33)
[2021-11-15 05:50] VITALS: BP 134/88
[2021-11-15 08:00] VITALS: BP 140/88
[2021-11-15] MEDS ORDERED: FUROSEMIDE 20MG/2ML VIAL (J1940) IV ONE (08:35)
[2021-11-15] MEDS: PANTOPRAZOLE 40MG VIAL IV SCH (08:59)
[2021-11-15] MEDS: FAMOTIDINE 20MG/2ML VIAL IV SCH ×2 (12:20→23:52)
[2021-11-15 22:00] VITALS: BP 130/82
[2021-11-15] MEDS: ACETAMINOPHEN 500 MG TAB PO PRN (22:01)
[2021-11-16] MEDS: IPRATROPIUM 0.5MG/ALBUTEROL 2.5MG INH SOL UD 3ML (DUONEB) NEB SCH ×4 (01:00→18:07)
[2021-11-16] MEDS: PROMETHAZINE 25MG/ML 1ML VIAL IV PRN ×5 (01:20→21:18)
[2021-11-16] MEDS: HYDROMORPHONE HCL 0.5 MG/ 0.5 ML SYRINGE (J1170 PER 1) IV PRN ×5 (01:21→21:53)
[2021-11-16 02:00] VITALS: BP 145/88
[2021-11-16] MEDS: PIPERACILLIN/TAZOBACTAM SOD 3.375 GM in D5W MINI-BAG PLUS 50 ML IV SCH ×4 (03:30→21:53)
[2021-11-16] MEDS: SODIUM CHLORIDE 0.9% INJ 10 ML SYR IV SCH ×2 (05:26→17:39)
[2021-11-16] MEDS: SODIUM CHLORIDE 0.9% INJ 10 ML SYR IV PRN (05:26)
[2021-11-16] MEDS: KETOROLAC 30 MG/ML 1ML VIAL IV SCH ×5 (05:26→23:00)
[2021-11-16 06:00] VITALS: BP 145/88
[2021-11-16 10:00] VITALS: BP 142/72
[2021-11-16] MEDS: PANTOPRAZOLE 40MG VIAL IV SCH (10:08)
[2021-11-16] MEDS: FAMOTIDINE 20MG/2ML VIAL IV SCH ×2 (12:42→23:40)
[2021-11-16] MEDS: ENOXAPARIN 40MG/0.4ML SYRINGE (J1650 PER 10MG) SC SCH (12:43)
[2021-11-16 14:00] VITALS: BP 138/70
[2021-11-16] MEDS: ACETAMINOPHEN 500 MG TAB PO PRN (17:38)
[2021-11-16 18:00] VITALS: BP 146/80
[2021-11-16 21:55] VITALS: BP 146/88
[2021-11-17] VITALS (7 sets, daily range): BP systolic 132–161; BP diastolic 62–90
[2021-11-17] MEDS: ACETAMINOPHEN 500 MG TAB PO PRN ×2 (01:40→21:13)
[2021-11-17] MEDS: PROMETHAZINE 25MG/ML 1ML VIAL IV PRN ×5 (01:40→23:09)
[2021-11-17] MEDS: IPRATROPIUM 0.5MG/ALBUTEROL 2.5MG INH SOL UD 3ML (DUONEB) NEB SCH ×4 (02:00→19:41)
[2021-11-17] MEDS: HYDROMORPHONE HCL 0.5 MG/ 0.5 ML SYRINGE (J1170 PER 1) IV PRN ×5 (02:20→23:10)
[2021-11-17 04:06] LABS: GC DNA AMPLIFICATION NEGATIVE (NEGATIVE)
[2021-11-17] MEDS: PIPERACILLIN/TAZOBACTAM SOD 3.375 GM in D5W MINI-BAG PLUS 50 ML IV SCH ×4 (04:55→21:12)
[2021-11-17] MEDS: KETOROLAC 30 MG/ML 1ML VIAL IV SCH ×4 (05:00→23:00)
[2021-11-17] MEDS: SODIUM CHLORIDE 0.9% INJ 10 ML SYR IV SCH ×2 (06:16→17:15)
[2021-11-17 06:37] LABS: BASO % 0.2 % (0.0-1.0); EOS # 0.6 10^3/uL (0.0-0.5); EOS % 3.3 % (0.0-3.0); HEMATOCRIT 28.2 % (36.0-47.0); HEMOGLOBIN 9.4 g/dl (12.0-15.5); LYMPH # 0.9 10^3/uL (1.5-5.0); LYMPH % 5.5 % (24.0-44.0); MEAN CORPUSCULAR HEMOGLOBIN 30.7 pg (27.0-33.0); MEAN CORPUSCULAR HGB CONC 33.3 g/dl (32.0-36.5); MEAN CORPUSCULAR VOLUME 92.2 fl (80.0-96.0); MONO # 0.8 10^3/uL (0.0-0.8); MONO % 4.5 % (2.0-8.0); NEUTROPHILS # 14.1 10^3/uL (1.5-8.5); NEUTROPHILS % 84.3 % (36.0-66.0); PLATELET COUNT, AUTOMATED 440 10^3/uL (150-450); RED BLOOD COUNT 3.06 10^6/uL (4.00-5.40); WHITE BLOOD COUNT 16.8 10^3/uL (4.0-10.0)
[2021-11-17 07:10] LABS: ALBUMIN 1.7 GM/DL (3.2-5.2); ALT/SGPT 8 U/L (12-78); BILIRUBIN,TOTAL 0.5 MG/DL (0.2-1.0); BLOOD UREA NITROGEN 4 MG/DL (7-18); CALCIUM LEVEL 7.8 MG/DL (8.5-10.1); CARBON DIOXIDE LEVEL 27 MEQ/L (21-32); CHLORIDE LEVEL 99 MEQ/L (98-107); CREATININE FOR GFR 0.32 MG/DL (0.55-1.30); GLOMERULAR FILTRATION RATE > 60.0 (>51); GLUCOSE, FASTING 69 MG/DL (70-100); POTASSIUM SERUM 3.5 MEQ/L (3.5-5.1); SODIUM LEVEL 137 MEQ/L (136-145); TOTAL PROTEIN 5.2 GM/DL (6.4-8.2)
[2021-11-17] MEDS: ENOXAPARIN 40MG/0.4ML SYRINGE (J1650 PER 10MG) SC SCH (09:20)
[2021-11-17] MEDS: PANTOPRAZOLE 40MG VIAL IV SCH (09:21)
[2021-11-17] MEDS: FAMOTIDINE 20MG/2ML VIAL IV SCH ×2 (11:13→23:24)
[2021-11-18] MEDS: IPRATROPIUM 0.5MG/ALBUTEROL 2.5MG INH SOL UD 3ML (DUONEB) NEB SCH ×4 (01:04→19:38)
[2021-11-18] MEDS: KETOROLAC 30 MG/ML 1ML VIAL IV SCH ×4 (04:39→23:27)
[2021-11-18] MEDS: SODIUM CHLORIDE 0.9% INJ 10 ML SYR IV SCH ×2 (04:41→18:22)
[2021-11-18] MEDS: PIPERACILLIN/TAZOBACTAM SOD 3.375 GM in D5W MINI-BAG PLUS 50 ML IV SCH ×4 (04:42→21:44)
[2021-11-18 05:30] VITALS: BP 142/84
[2021-11-18] MEDS: PROMETHAZINE 25MG/ML 1ML VIAL IV PRN ×4 (05:38→21:43)
[2021-11-18 06:18] LABS: BASO # 0.1 10^3/uL (0.0-0.2); BASO % 0.4 % (0.0-1.0); EOS # 0.6 10^3/uL (0.0-0.5); EOS % 4.6 % (0.0-3.0); HEMATOCRIT 27.2 % (36.0-47.0); HEMOGLOBIN 9.2 g/dl (12.0-15.5); LYMPH # 0.9 10^3/uL (1.5-5.0); LYMPH % 7.3 % (24.0-44.0); MEAN CORPUSCULAR HEMOGLOBIN 31.1 pg (27.0-33.0); MEAN CORPUSCULAR HGB CONC 33.8 g/dl (32.0-36.5); MEAN CORPUSCULAR VOLUME 91.9 fl (80.0-96.0); MONO # 0.7 10^3/uL (0.0-0.8); MONO % 5.6 % (2.0-8.0); NEUTROPHILS # 9.6 10^3/uL (1.5-8.5); NEUTROPHILS % 80.2 % (36.0-66.0); PLATELET COUNT, AUTOMATED 468 10^3/uL (150-450); RED BLOOD COUNT 2.96 10^6/uL (4.00-5.40)
[2021-11-18] MEDS: HYDROMORPHONE HCL 0.5 MG/ 0.5 ML SYRINGE (J1170 PER 1) IV PRN ×4 (06:22→22:22)
[2021-11-18 06:39] LABS: BLOOD UREA NITROGEN 5 MG/DL (7-18); CALCIUM LEVEL 7.3 MG/DL (8.5-10.1); CARBON DIOXIDE LEVEL 31 MEQ/L (21-32); CHLORIDE LEVEL 100 MEQ/L (98-107); CREATININE FOR GFR 0.35 MG/DL (0.55-1.30); GLOMERULAR FILTRATION RATE > 60.0 (>51); GLUCOSE, FASTING 82 MG/DL (70-100); SODIUM LEVEL 137 MEQ/L (136-145)
[2021-11-18 08:12] LABS: HEPATITIS B SURFACE ANTIGEN NEGATIVE (NEGATIVE)
[2021-11-18 08:39] LABS: HEPATITIS C VIRUS ABY INDEX 0.1 INDEX (<0.8)
[2021-11-18 08:40] LABS: HEPATITIS B CORE ANTIBODY IGM NEGATIVE (NEGATIVE); HIV 1&2 SCREEN CENTAUR NEGATIVE (NEGATIVE)
[2021-11-18] MEDS: PANTOPRAZOLE 40MG VIAL IV SCH (09:23)
[2021-11-18] MEDS: ENOXAPARIN 40MG/0.4ML SYRINGE (J1650 PER 10MG) SC SCH (09:24)
[2021-11-18 10:00] VITALS: BP 138/82
[2021-11-18] MEDS: SODIUM CHLORIDE 0.9% INJ 10 ML SYR IV PRN ×2 (11:02→22:22)
[2021-11-18] MEDS: FAMOTIDINE 20MG/2ML VIAL IV SCH ×2 (12:16→23:27)
[2021-11-18 14:00] VITALS: BP 130/78
[2021-11-18] MEDS ORDERED: POTASSIUM CHLORIDE 10MEQ SR TABLET PO ONE (16:40)
[2021-11-18 18:00] VITALS: BP 142/90
[2021-11-18 21:00] VITALS: BP 120/80
[2021-11-19 01:31] VITALS: BP 140/86
[2021-11-19] MEDS: PROMETHAZINE 25MG/ML 1ML VIAL IV PRN ×5 (01:39→20:37)
[2021-11-19] MEDS: IPRATROPIUM 0.5MG/ALBUTEROL 2.5MG INH SOL UD 3ML (DUONEB) NEB SCH ×4 (02:00→19:17)
[2021-11-19] MEDS: HYDROMORPHONE HCL 0.5 MG/ 0.5 ML SYRINGE (J1170 PER 1) IV PRN ×2 (02:29→06:46)
[2021-11-19] MEDS: PIPERACILLIN/TAZOBACTAM SOD 3.375 GM in D5W MINI-BAG PLUS 50 ML IV SCH ×4 (04:51→21:32)
[2021-11-19] MEDS: SODIUM CHLORIDE 0.9% INJ 10 ML SYR IV SCH ×2 (04:53→16:41)
[2021-11-19] MEDS: KETOROLAC 30 MG/ML 1ML VIAL IV SCH (05:36)
[2021-11-19 06:33] VITALS: BP 130/82
[2021-11-19 08:22] LABS: HEMATOCRIT 27.2 % (36.0-47.0); MEAN CORPUSCULAR HEMOGLOBIN 30.6 pg (27.0-33.0); MEAN CORPUSCULAR HGB CONC 33.1 g/dl (32.0-36.5); MEAN CORPUSCULAR VOLUME 92.5 fl (80.0-96.0); PLATELET COUNT, AUTOMATED 488 10^3/uL (150-450); RED BLOOD COUNT 2.94 10^6/uL (4.00-5.40); WHITE BLOOD COUNT 9.7 10^3/uL (4.0-10.0)
[2021-11-19] MEDS: PANTOPRAZOLE 40MG VIAL IV SCH (08:46)
[2021-11-19] MEDS: POTASSIUM CHLORIDE 10MEQ SR TABLET PO SCH (08:46)
[2021-11-19] MEDS: ENOXAPARIN 40MG/0.4ML SYRINGE (J1650 PER 10MG) SC SCH (08:46)
[2021-11-19] MEDS: SODIUM CHLORIDE 0.9% INJ 10 ML SYR IV PRN ×4 (08:47→21:32)
[2021-11-19 10:00] VITALS: BP_SYST 137; BP_SYST 142; BP_DIAS 79; BP_DIAS 94
[2021-11-19] MEDS: HYDROmorphone HCL 2MG/ML 1ML VIAL IV PRN ×3 (10:23→20:04)
[2021-11-19] MEDS: FAMOTIDINE 20MG/2ML VIAL IV SCH (12:26)
[2021-11-19 14:00] VITALS: BP 142/90
[2021-11-19] MEDS ORDERED: PILL CUTTER 1 EACH XX PRN (14:30)
[2021-11-19] MEDS: SIMETHICONE 80MG CHEW TAB PO SCH ×2 (16:41→21:02)
[2021-11-19 18:00] VITALS: BP 138/90
[2021-11-19 21:30] VITALS: BP 144/88
[2021-11-20] MEDS: SODIUM CHLORIDE 0.9% INJ 10 ML SYR IV PRN ×8 (00:14→22:24)
[2021-11-20] MEDS: FAMOTIDINE 20MG/2ML VIAL IV SCH ×2 (00:14→14:47)
[2021-11-20] MEDS: PROMETHAZINE 25MG/ML 1ML VIAL IV PRN ×5 (00:46→20:12)
[2021-11-20] MEDS: HYDROmorphone HCL 2MG/ML 1ML VIAL IV PRN ×5 (01:20→21:12)
[2021-11-20 01:39] VITALS: BP 124/86
[2021-11-20] MEDS: IPRATROPIUM 0.5MG/ALBUTEROL 2.5MG INH SOL UD 3ML (DUONEB) NEB SCH ×4 (02:00→20:00)
[2021-11-20] MEDS: PIPERACILLIN/TAZOBACTAM SOD 3.375 GM in D5W MINI-BAG PLUS 50 ML IV SCH ×4 (04:15→21:13)
[2021-11-20] MEDS: SODIUM CHLORIDE 0.9% INJ 10 ML SYR IV SCH ×2 (05:41→16:40)
[2021-11-20 05:56] VITALS: BP 146/92
[2021-11-20 10:00] VITALS: BP 138/82
[2021-11-20] MEDS: POTASSIUM CHLORIDE 10MEQ SR TABLET PO SCH (10:16)
[2021-11-20] MEDS: SIMETHICONE 80MG CHEW TAB PO SCH ×4 (10:16→19:51)
[2021-11-20] MEDS: PANTOPRAZOLE 40MG VIAL IV SCH (10:17)
[2021-11-20] MEDS: ENOXAPARIN 40MG/0.4ML SYRINGE (J1650 PER 10MG) SC SCH (10:17)
[2021-11-20 14:00] VITALS: BP 136/84
[2021-11-20 15:16] LABS: HEMATOCRIT 28.3 % (36.0-47.0); HEMOGLOBIN 9.4 g/dl (12.0-15.5); MEAN CORPUSCULAR HEMOGLOBIN 30.6 pg (27.0-33.0); MEAN CORPUSCULAR HGB CONC 33.2 g/dl (32.0-36.5); MEAN CORPUSCULAR VOLUME 92.2 fl (80.0-96.0); PLATELET COUNT, AUTOMATED 583 10^3/uL (150-450); RED BLOOD COUNT 3.07 10^6/uL (4.00-5.40); WHITE BLOOD COUNT 10.5 10^3/uL (4.0-10.0)
[2021-11-20 15:57] LABS: BLOOD UREA NITROGEN 4 MG/DL (7-18); CARBON DIOXIDE LEVEL 31 MEQ/L (21-32); CHLORIDE LEVEL 100 MEQ/L (98-107); CREATININE FOR GFR 0.51 MG/DL (0.55-1.30); GLOMERULAR FILTRATION RATE > 60.0 (>51); GLUCOSE, FASTING 78 MG/DL (70-100); POTASSIUM SERUM 4.2 MEQ/L (3.5-5.1); SODIUM LEVEL 136 MEQ/L (136-145)
[2021-11-20] MEDS: ACETAMINOPHEN TAB 650MG DOSE (2X325MG) PO SCH ×2 (16:40→19:55)
[2021-11-20 18:00] VITALS: BP 140/88
[2021-11-20 22:00] VITALS: BP 128/82
[2021-11-21] MEDS: PROMETHAZINE 25MG/ML 1ML VIAL IV PRN ×2 (00:39→05:12)
[2021-11-21] MEDS: FAMOTIDINE 20MG/2ML VIAL IV SCH ×2 (00:42→11:34)
[2021-11-21] MEDS: IPRATROPIUM 0.5MG/ALBUTEROL 2.5MG INH SOL UD 3ML (DUONEB) NEB SCH ×4 (01:10→20:00)
[2021-11-21] MEDS: HYDROmorphone HCL 2MG/ML 1ML VIAL IV PRN ×2 (01:28→06:13)
[2021-11-21 02:00] VITALS: BP 138/88
[2021-11-21] MEDS: PIPERACILLIN/TAZOBACTAM SOD 3.375 GM in D5W MINI-BAG PLUS 50 ML IV SCH ×4 (03:56→21:42)
[2021-11-21 05:09] VITALS: BP 120/80
[2021-11-21] MEDS: SODIUM CHLORIDE 0.9% INJ 10 ML SYR IV SCH ×2 (06:14→17:31)
[2021-11-21] MEDS: ACETAMINOPHEN TAB 650MG DOSE (2X325MG) PO SCH ×3 (09:09→23:23)
[2021-11-21] MEDS: POTASSIUM CHLORIDE 10MEQ SR TABLET PO SCH (09:10)
[2021-11-21] MEDS: PANTOPRAZOLE 40MG VIAL IV SCH (09:10)
[2021-11-21] MEDS: ENOXAPARIN 40MG/0.4ML SYRINGE (J1650 PER 10MG) SC SCH (09:11)
[2021-11-21] MEDS: SIMETHICONE 80MG CHEW TAB PO SCH ×4 (09:19→21:43)
[2021-11-21 10:00] VITALS: BP 124/78
[2021-11-21] MEDS: PERCOCET 5MG/325MG TAB PO PRN ×3 (11:33→21:45)
[2021-11-21] MEDS: SODIUM CHLORIDE 0.9% INJ 10 ML SYR IV PRN ×3 (12:53→19:01)
[2021-11-21] MEDS ORDERED: HYDROmorphone HCL 2MG/ML 1ML VIAL IV PRN (13:00)
[2021-11-21] MEDS: ONDANSETRON 4MG/2ML VIAL IV PRN ×3 (13:04→21:42)
[2021-11-21 14:00] VITALS: BP 126/80
[2021-11-21 18:00] VITALS: BP 130/78
[2021-11-21 22:00] VITALS: BP 118/72
[2021-11-22] MEDS: FAMOTIDINE 20MG/2ML VIAL IV SCH ×2 (00:03→12:34)
[2021-11-22] MEDS: PERCOCET 5MG/325MG TAB PO PRN ×4 (01:52→18:25)
[2021-11-22 02:00] VITALS: BP 136/88
[2021-11-22] MEDS: IPRATROPIUM 0.5MG/ALBUTEROL 2.5MG INH SOL UD 3ML (DUONEB) NEB SCH ×4 (02:00→20:00)
[2021-11-22] MEDS: ONDANSETRON 4MG/2ML VIAL IV PRN ×3 (02:24→21:24)
[2021-11-22] MEDS: PIPERACILLIN/TAZOBACTAM SOD 3.375 GM in D5W MINI-BAG PLUS 50 ML IV SCH ×4 (04:53→21:16)
[2021-11-22] MEDS: SODIUM CHLORIDE 0.9% INJ 10 ML SYR IV SCH ×2 (05:56→18:26)
[2021-11-22 06:00] VITALS: BP 140/86
[2021-11-22] MEDS: ENOXAPARIN 40MG/0.4ML SYRINGE (J1650 PER 10MG) SC SCH (09:55)
[2021-11-22] MEDS: PANTOPRAZOLE 40MG VIAL IV SCH (09:55)
[2021-11-22] MEDS: SIMETHICONE 80MG CHEW TAB PO SCH ×4 (09:56→21:16)
[2021-11-22 10:00] VITALS: BP 130/80
[2021-11-22 14:00] VITALS: BP 108/74
[2021-11-22 18:00] VITALS: BP 110/70
[2021-11-22] MEDS: HYDROmorphone HCL 2MG/ML 1ML VIAL IV PRN (20:54)
[2021-11-23] VITALS (7 sets, daily range): BP systolic 114–142; BP diastolic 76–94
[2021-11-23] MEDS: FAMOTIDINE 20MG/2ML VIAL IV SCH ×2 (00:10→13:00)
[2021-11-23] MEDS: PERCOCET 5MG/325MG TAB PO PRN ×5 (02:20→20:46)
[2021-11-23] MEDS: PIPERACILLIN/TAZOBACTAM SOD 3.375 GM in D5W MINI-BAG PLUS 50 ML IV SCH ×4 (04:26→21:31)
[2021-11-23] MEDS: SODIUM CHLORIDE 0.9% INJ 10 ML SYR IV SCH ×2 (06:11→16:05)
[2021-11-23] MEDS: SIMETHICONE 80MG CHEW TAB PO SCH ×4 (08:49→21:30)
[2021-11-23] MEDS: ENOXAPARIN 40MG/0.4ML SYRINGE (J1650 PER 10MG) SC SCH (10:38)
[2021-11-23] MEDS: PANTOPRAZOLE 40MG VIAL IV SCH (10:38)
[2021-11-23] MEDS: SODIUM CHLORIDE 0.9% INJ 10 ML SYR IV PRN (10:39)
[2021-11-23] MEDS ORDERED: PROCHLORPERAZINE 10MG/2ML VIAL (J0780 PER 1) IV ONE (23:00)
[2021-11-23] MEDS ORDERED: HYDROMORPHONE HCL 0.5 MG/ 0.5 ML SYRINGE (J1170 PER 1) IV ONE (23:30)
[2021-11-24] MEDS: FAMOTIDINE 20MG/2ML VIAL IV SCH ×2 (00:25→10:45)
[2021-11-24] MEDS: PERCOCET 5MG/325MG TAB PO PRN ×4 (01:41→20:42)
[2021-11-24 02:00] VITALS: BP 107/76
[2021-11-24] MEDS: PIPERACILLIN/TAZOBACTAM SOD 3.375 GM in D5W MINI-BAG PLUS 50 ML IV SCH ×4 (04:04→21:46)
[2021-11-24] MEDS: SODIUM CHLORIDE 0.9% INJ 10 ML SYR IV SCH ×2 (05:25→16:59)
[2021-11-24 06:00] VITALS: BP 125/83
[2021-11-24 07:45] LABS: HEMATOCRIT 27.9 % (36.0-47.0); HEMOGLOBIN 9.1 g/dl (12.0-15.5); MEAN CORPUSCULAR HEMOGLOBIN 30.1 pg (27.0-33.0); MEAN CORPUSCULAR HGB CONC 32.6 g/dl (32.0-36.5); MEAN CORPUSCULAR VOLUME 92.4 fl (80.0-96.0); PLATELET COUNT, AUTOMATED 715 10^3/uL (150-450); RED BLOOD COUNT 3.02 10^6/uL (4.00-5.40); WHITE BLOOD COUNT 5.6 10^3/uL (4.0-10.0)
[2021-11-24] MEDS: SIMETHICONE 80MG CHEW TAB PO SCH ×4 (10:41→20:41)
[2021-11-24] MEDS: PANTOPRAZOLE 40MG VIAL IV SCH (10:41)
[2021-11-24] MEDS: ENOXAPARIN 40MG/0.4ML SYRINGE (J1650 PER 10MG) SC SCH (10:45)
[2021-11-24] MEDS: SODIUM CHLORIDE 0.9% INJ 10 ML SYR IV PRN (10:46)
[2021-11-24 12:29] VITALS: BP 98/54
[2021-11-24 14:00] VITALS: BP 102/72
[2021-11-24] MEDS: PROMETHAZINE 25MG/ML 1ML VIAL IV PRN (16:57)
[2021-11-24] MEDS: HYDROmorphone HCL 2MG/ML 1ML VIAL IV PRN (16:58)
[2021-11-24 18:00] VITALS: BP 118/74
[2021-11-24] MEDS ORDERED: PROMETHAZINE 25MG/ML 1ML VIAL IV PRN (19:50)
[2021-11-24] MEDS ORDERED: HYDROmorphone HCL 2MG/ML 1ML VIAL IV PRN (21:00)
[2021-11-24 22:00] VITALS: BP 125/83
[2021-11-25] MEDS: FAMOTIDINE 20MG/2ML VIAL IV SCH ×3 (00:45→23:11)
[2021-11-25] MEDS: PERCOCET 5MG/325MG TAB PO PRN ×6 (00:46→21:34)
[2021-11-25] MEDS: PIPERACILLIN/TAZOBACTAM SOD 3.375 GM in D5W MINI-BAG PLUS 50 ML IV SCH ×4 (03:44→21:33)
[2021-11-25] MEDS: SODIUM CHLORIDE 0.9% INJ 10 ML SYR IV SCH ×2 (04:48→18:23)
[2021-11-25 06:00] VITALS: BP 129/85
[2021-11-25] MEDS: ENOXAPARIN 40MG/0.4ML SYRINGE (J1650 PER 10MG) SC SCH (08:50)
[2021-11-25] MEDS: SIMETHICONE 80MG CHEW TAB PO SCH ×4 (08:52→20:24)
[2021-11-25] MEDS: PANTOPRAZOLE 40MG VIAL IV SCH (09:06)
[2021-11-25] MEDS: SODIUM CHLORIDE 0.9% INJ 10 ML SYR IV PRN ×2 (09:07→14:48)
[2021-11-25 10:00] VITALS: BP 136/88
[2021-11-25 14:00] VITALS: BP 123/80
[2021-11-25 18:00] VITALS: BP 159/98
[2021-11-25] MEDS ORDERED: AMITRIPTYLINE 25MG TABLET PO SCH (21:00)
[2021-11-25 21:58] VITALS: BP 118/88
[2021-11-26] MEDS: PERCOCET 5MG/325MG TAB PO PRN ×4 (01:34→16:13)
[2021-11-26 02:00] VITALS: BP 122/84
[2021-11-26] MEDS: PIPERACILLIN/TAZOBACTAM SOD 3.375 GM in D5W MINI-BAG PLUS 50 ML IV SCH ×2 (04:49→10:31)
[2021-11-26] MEDS: SODIUM CHLORIDE 0.9% INJ 10 ML SYR IV SCH (05:35)
[2021-11-26 06:00] VITALS: BP 142/93
[2021-11-26 06:33] VITALS: BP 129/87
[2021-11-26] MEDS: ENOXAPARIN 40MG/0.4ML SYRINGE (J1650 PER 10MG) SC SCH (08:19)
[2021-11-26] MEDS: SIMETHICONE 80MG CHEW TAB PO SCH ×2 (08:20→13:38)
[2021-11-26] MEDS: PANTOPRAZOLE 40MG VIAL IV SCH (08:46)
[2021-11-26] MEDS ORDERED: AMIT25TA17 PO (09:30)
[2021-11-26] MEDS ORDERED: PERCOCET PO (09:30)
[2021-11-26] MEDS ORDERED: SIME80TA16 PO (09:30)
[2021-11-26] MEDS ORDERED: IBUP80TA PO (09:30)
[2021-11-26 10:00] VITALS: BP 117/75
[2021-11-26] MEDS: FAMOTIDINE 20MG/2ML VIAL IV SCH (11:44)
[2021-11-26 14:00] VITALS: BP 146/70
== END 2021-11-26 16:52 | disposition home health service (06) | DRG 221 ==
LOC: M ED 10:07 → M ED INP 15:54 → ENRESERV 17:49 → M MS5PR 18:35 → M MSPAV 11-17 20:14
PROVIDERS: ADMIT Surgery; ATTEND Surgery
PROC: 0D1N0Z4 Bypass Sigmoid Colon to Cutaneous, Open Approach (ICD-10-PCS; 2021-11-12)
PROC: 0DB80ZZ Excision of Small Intestine, Open Approach (ICD-10-PCS; 2021-11-12)
PROC: 02HV33Z Insertion of Infusion Device into Superior Vena Cava, Percutaneous Approach (ICD-10-PCS; 2021-11-12)
PROC: 0DBN0ZZ Excision of Sigmoid Colon, Open Approach (ICD-10-PCS; principal; 2021-11-12 14:12)
DX: K57.80 Diverticulitis of intestine, part unspecified, with perforation and abscess without bleeding (principal); K63.2 Fistula of intestine; K56.7 Ileus, unspecified; E87.6 Hypokalemia

== ENCOUNTER → 2022-03-18 | Outpatient (REF) | payer OTHER ==
[~2022-03-18] MED LIST changes: +AMIT25TA17 PO; +PERCOCET PO; +SIME80TA16 PO
[2022-03-18 13:14] LABS: BASO % 0.5 % (0.0-1.0); EOS # 0.1 10^3/uL (0.0-0.5); EOS % 1.8 % (0.0-3.0); HEMATOCRIT 40.9 % (36.0-47.0); HEMOGLOBIN 13.6 g/dl (12.0-15.5); LYMPH # 1.7 10^3/uL (1.5-5.0); LYMPH % 26.8 % (24.0-44.0); MEAN CORPUSCULAR HEMOGLOBIN 30.8 pg (27.0-33.0); MEAN CORPUSCULAR HGB CONC 33.3 g/dl (32.0-36.5); MEAN CORPUSCULAR VOLUME 92.5 fl (80.0-96.0); MONO # 0.5 10^3/uL (0.0-0.8); MONO % 7.6 % (2.0-8.0); NEUTROPHILS # 3.9 10^3/uL (1.5-8.5); NEUTROPHILS % 63.1 % (36.0-66.0); PLATELET COUNT, AUTOMATED 323 10^3/uL (150-450); RED BLOOD COUNT 4.42 10^6/uL (4.00-5.40); WHITE BLOOD COUNT 6.2 10^3/uL (4.0-10.0)
[2022-03-18 13:59] LABS: ALBUMIN 3.8 GM/DL (3.2-5.2); ALT/SGPT 27 U/L (12-78); BILIRUBIN,TOTAL 0.7 MG/DL (0.2-1.0); BLOOD UREA NITROGEN 14 MG/DL (7-18); CALCIUM LEVEL 9.7 MG/DL (8.5-10.1); CARBON DIOXIDE LEVEL 28 MEQ/L (21-32); CHLORIDE LEVEL 108 MEQ/L (98-107); CHOLESTEROL LEVEL 188 MG/DL (<200); CHOLESTEROL RISK RATIO 2.892 (<5); CREATININE FOR GFR 0.73 MG/DL (0.55-1.30); GLOMERULAR FILTRATION RATE > 60.0 (>51); GLUCOSE, FASTING 97 MG/DL (70-100); HDL CHOLESTEROL 65 MG/DL (>40); LDL CHOLESTEROL 106 MG/DL (<100); NON-HDL-C 123 MG/DL; POTASSIUM SERUM 4.6 MEQ/L (3.5-5.1); SODIUM LEVEL 140 MEQ/L (136-145); TOTAL PROTEIN 6.7 GM/DL (6.4-8.2); TRIGLYCERIDES LEVEL 87 MG/DL (<150)
== END ==
LOC: M SFHCADAM 09:40
PROVIDERS: ATTEND Family Medicine
DX: Z00.00 Encounter for general adult medical examination without abnormal findings (principal)

== ENCOUNTER 2022-03-25 07:30 | Inpatient (IN) | payer OTHER ==
[~2022-03-25] VITALS: Ht 160 cm; Wt 59.5 kg
[2022-04-08] MEDS ORDERED: VITA1TAB61 PO (10:27)
[2022-04-22] VITALS (7 sets, daily range): BP systolic 108–127; BP diastolic 68–88
[2022-04-22] MEDS ORDERED: ERTAPENEM SODIUM 1 GM in NS MINI-BAG PLUS 50 ML IV ONE (06:00)
[2022-04-22] MEDS ORDERED: MIDAZOLAM INJ 2MG/2ML VIAL (J2250 PER 1MG) As Ordered ONE (09:48)
[2022-04-22] MEDS ORDERED: fentaNYL 100 MCG/2 ML INJECTION As Ordered ONE ×2 (09:48→12:29)
[2022-04-22] MEDS ORDERED: dexameTHASONE 4 MG/ML 1ML VIAL (J1100 PER 1MG) As Ordered ONE ×2 (09:48→14:24)
[2022-04-22] MEDS ORDERED: SCOPOLAMINE 1MG TRANSDERMAL PATCH TOP ONE ×2 (10:20→12:00)
[2022-04-22] MEDS ORDERED: LR 1,000 ML IV SCH ×2 (10:20→14:55)
[2022-04-22] MEDS ORDERED: METOCLOPRAMIDE INJ 10MG/2ML VIAL (J2765 PER 1) As Ordered ONE (10:25)
[2022-04-22] MEDS ORDERED: HOME MED LIST COMPLETE! XX SCH (10:40)
[2022-04-22] MEDS ORDERED: MIDAZOLAM INJ 2MG/2ML VIAL (J2250 PER 1MG) IV ONE (11:10)
[2022-04-22] MEDS ORDERED: BUPIVACAINE LIPOSOME/PF 1.3% 20ML VIAL (13.3MG/ML)(EXPAREL) As Ordered ONE (11:32)
[2022-04-22] MEDS ORDERED: GLUCAGON INJ 1MG VIAL As Ordered ONE (11:32)
[2022-04-22] MEDS ORDERED: BUPIVACAINE HCL 0.25% 30ML VIAL As Ordered ONE (11:32)
[2022-04-22] MEDS ORDERED: BUPIVACAINE/EPIN 0.25% 30 ML VIAL As Ordered ONE (11:32)
[2022-04-22] MEDS ORDERED: propofoL 200 MG/20 ML VIAL As Ordered ONE (12:45)
[2022-04-22] MEDS ORDERED: SUGAMMADEX SODIUM 500 MG/5 ML VIAL (BRIDION) As Ordered ONE (12:46)
[2022-04-22] MEDS ORDERED: ROCURONIUM BROMIDE 50 MG/5 ML VIAL As Ordered ONE ×2 (12:46→13:56)
[2022-04-22] MEDS ORDERED: LIDOCAINE 2% 100MG/5ML SDV (FOR ANES.) As Ordered ONE (12:46)
[2022-04-22] MEDS ORDERED: KETOROLAC 60MG 2ML VIAL As Ordered ONE (12:47)
[2022-04-22] MEDS ORDERED: ACETAMINOPHEN 1000MG 100ML IV BTL (OFIRMEV) (J0131 PER 10MG) As Ordered ONE (12:47)
[2022-04-22] MEDS ORDERED: ONDANSETRON 4MG 2ML VIAL As Ordered ONE (12:48)
[2022-04-22] MEDS ORDERED: GLYCOPYRROLATE INJ 0.2 MG/ML 2 ML VIAL As Ordered ONE (12:56)
[2022-04-22] MEDS ORDERED: ePHEDrine SULFATE 25 MG/5 ML(5MG/ML) SYRINGE As Ordered ONE (13:09)
[2022-04-22] MEDS: IPRATROPIUM 0.5MG/ALBUTEROL 2.5MG INH SOL UD 3ML (DUONEB) NEB SCH ×2 (14:00→19:30)
[2022-04-22] MEDS ORDERED: REFLB XX ONE (14:35)
[2022-04-22] MEDS ORDERED: ALBUTEROL 6.7GM INHALER **FOR ANES. CART/OMNICELL ONLY As Ordered ONE (14:35)
[2022-04-22] MEDS ORDERED: HYDROmorphone HCL 2MG/ML 1ML VIAL As Ordered ONE (14:44)
[2022-04-22] MEDS ORDERED: diphenhydrAMINE 50MG/ML VIAL (J1200) IV PRN (14:45)
[2022-04-22] MEDS ORDERED: NS 1,000 ML IV SCH (14:45)
[2022-04-22] MEDS ORDERED: IPRATROPIUM 0.5MG/ALBUTEROL 2.5MG INH SOL UD 3ML (DUONEB) NEB PRN (14:45)
[2022-04-22] MEDS ORDERED: ONDANSETRON 4MG 2ML VIAL IV PRN ×2 (14:45→14:55)
[2022-04-22] MEDS ORDERED: NALOXONE INJ 0.4MG/1ML VIAL (J2310 PER 1MG) IV PRN (14:45)
[2022-04-22] MEDS ORDERED: EPIDURAL/PCA KEYS XX PRN (14:45)
[2022-04-22] MEDS ORDERED: oxyCODONE 5MG TAB PO PRN (14:55)
[2022-04-22] MEDS: fentaNYL 100 MCG/2 ML INJECTION IV PRN ×4 (15:50→16:32)
[2022-04-22] MEDS ORDERED: PROMETHAZINE 25MG/ML 1ML VIAL IV PRN (16:10)
[2022-04-22] MEDS ORDERED: MORPHINE 1MG/ML IN 0.9% NACL 100ML IV BAG IV PRN (17:00)
[2022-04-22] MEDS: NS 1,000 ML IV SCH (17:49)
[2022-04-22] MEDS: KETOROLAC 30 MG/ML 1ML VIAL IV SCH (17:49)
[2022-04-22] MEDS: PANTOPRAZOLE 40MG VIAL IV SCH (17:49)
[2022-04-22] MEDS: ONDANSETRON 4MG 2ML VIAL IV PRN (21:16)
[2022-04-22] MEDS: HYDROmorphone HCL 2MG/ML 1ML VIAL IV PRN (21:18)
[2022-04-23] MEDS: KETOROLAC 30 MG/ML 1ML VIAL IV SCH ×4 (00:45→18:05)
[2022-04-23] MEDS: NS 1,000 ML IV SCH (01:11)
[2022-04-23] MEDS: IPRATROPIUM 0.5MG/ALBUTEROL 2.5MG INH SOL UD 3ML (DUONEB) NEB SCH ×4 (01:31→19:02)
[2022-04-23 02:32] VITALS: BP 110/56
[2022-04-23] MEDS: HYDROmorphone HCL 2MG/ML 1ML VIAL IV PRN (05:26)
[2022-04-23] MEDS: ONDANSETRON 4MG 2ML VIAL IV PRN ×2 (05:32→21:32)
[2022-04-23 06:00] VITALS: BP 109/59
[2022-04-23 06:49] LABS: HEMATOCRIT 33.9 % (36.0-47.0); HEMOGLOBIN 11.4 g/dl (12.0-15.5); MEAN CORPUSCULAR HEMOGLOBIN 30.8 pg (27.0-33.0); MEAN CORPUSCULAR HGB CONC 33.6 g/dl (32.0-36.5); MEAN CORPUSCULAR VOLUME 91.6 fl (80.0-96.0); PLATELET COUNT, AUTOMATED 286 10^3/uL (150-450); WHITE BLOOD COUNT 11.7 10^3/uL (4.0-10.0)
[2022-04-23 07:28] LABS: BLOOD UREA NITROGEN 14 MG/DL (7-18); CALCIUM LEVEL 8.3 MG/DL (8.5-10.1); CARBON DIOXIDE LEVEL 25 MEQ/L (21-32); CHLORIDE LEVEL 108 MEQ/L (98-107); GLOMERULAR FILTRATION RATE > 60.0 (>51); GLUCOSE, FASTING 101 MG/DL (70-100); POTASSIUM SERUM 3.8 MEQ/L (3.5-5.1); SODIUM LEVEL 139 MEQ/L (136-145)
[2022-04-23] MEDS: PANTOPRAZOLE 40MG VIAL IV SCH (09:47)
[2022-04-23 10:00] VITALS: BP 104/63
[2022-04-23] MEDS ORDERED: ERTAPENEM SODIUM 1 GM in NS MINI-BAG PLUS 50 ML IV ONE (12:00)
[2022-04-23] MEDS: HYDROMORPHONE HCL 0.5 MG/ 0.5 ML SYRINGE (J1170 PER 1) IV PRN ×2 (13:15→21:32)
[2022-04-23 14:00] VITALS: BP 106/66
[2022-04-23 21:20] VITALS: BP 103/63
[2022-04-24] VITALS (7 sets, daily range): BP systolic 99–115; BP diastolic 60–74
[2022-04-24] MEDS: KETOROLAC 30 MG/ML 1ML VIAL IV SCH ×5 (00:05→22:13)
[2022-04-24] MEDS: IPRATROPIUM 0.5MG/ALBUTEROL 2.5MG INH SOL UD 3ML (DUONEB) NEB SCH ×4 (02:00→20:13)
[2022-04-24 07:31] LABS: HEMATOCRIT 32.4 % (36.0-47.0); HEMOGLOBIN 10.8 g/dl (12.0-15.5); MEAN CORPUSCULAR HEMOGLOBIN 31.1 pg (27.0-33.0); MEAN CORPUSCULAR HGB CONC 33.3 g/dl (32.0-36.5); MEAN CORPUSCULAR VOLUME 93.4 fl (80.0-96.0); PLATELET COUNT, AUTOMATED 250 10^3/uL (150-450); RED BLOOD COUNT 3.47 10^6/uL (4.00-5.40); WHITE BLOOD COUNT 7.9 10^3/uL (4.0-10.0)
[2022-04-24 08:02] LABS: BLOOD UREA NITROGEN 9 MG/DL (7-18); CALCIUM LEVEL 8.7 MG/DL (8.5-10.1); CARBON DIOXIDE LEVEL 26 MEQ/L (21-32); CHLORIDE LEVEL 108 MEQ/L (98-107); CREATININE FOR GFR 0.53 MG/DL (0.55-1.30); GLOMERULAR FILTRATION RATE > 60.0 (>51); GLUCOSE, FASTING 83 MG/DL (70-100); POTASSIUM SERUM 4.1 MEQ/L (3.5-5.1); SODIUM LEVEL 139 MEQ/L (136-145)
[2022-04-24] MEDS: HYDROMORPHONE HCL 0.5 MG/ 0.5 ML SYRINGE (J1170 PER 1) IV PRN ×2 (08:52→21:59)
[2022-04-24] MEDS: PANTOPRAZOLE 40MG VIAL IV SCH (08:53)
[2022-04-24] MEDS: ONDANSETRON 4MG 2ML VIAL IV PRN ×2 (08:56→21:57)
[2022-04-24] MEDS: ALVIMOPAN 12 MG CAPSULE (ENTEREG) PO SCH (21:57)
[2022-04-25] MEDS: IPRATROPIUM 0.5MG/ALBUTEROL 2.5MG INH SOL UD 3ML (DUONEB) NEB SCH ×4 (01:32→20:22)
[2022-04-25 02:00] VITALS: BP 122/79
[2022-04-25] MEDS: ONDANSETRON 4MG 2ML VIAL IV PRN ×2 (03:24→19:10)
[2022-04-25] MEDS: HYDROMORPHONE HCL 0.5 MG/ 0.5 ML SYRINGE (J1170 PER 1) IV PRN ×2 (03:26→15:52)
[2022-04-25 06:00] VITALS: BP 107/68
[2022-04-25 06:13] LABS: HEMATOCRIT 34.3 % (36.0-47.0); HEMOGLOBIN 11.2 g/dl (12.0-15.5); MEAN CORPUSCULAR HEMOGLOBIN 30.7 pg (27.0-33.0); MEAN CORPUSCULAR HGB CONC 32.7 g/dl (32.0-36.5); PLATELET COUNT, AUTOMATED 262 10^3/uL (150-450); RED BLOOD COUNT 3.65 10^6/uL (4.00-5.40)
[2022-04-25 06:41] LABS: BLOOD UREA NITROGEN 8 MG/DL (7-18); CALCIUM LEVEL 8.8 MG/DL (8.5-10.1); CARBON DIOXIDE LEVEL 29 MEQ/L (21-32); CHLORIDE LEVEL 106 MEQ/L (98-107); CREATININE FOR GFR 0.66 MG/DL (0.55-1.30); GLOMERULAR FILTRATION RATE > 60.0 (>51); GLUCOSE, FASTING 80 MG/DL (70-100); POTASSIUM SERUM 3.7 MEQ/L (3.5-5.1); SODIUM LEVEL 140 MEQ/L (136-145)
[2022-04-25] MEDS: KETOROLAC 30 MG/ML 1ML VIAL IV SCH ×3 (06:49→17:42)
[2022-04-25] MEDS: PANTOPRAZOLE 40MG VIAL IV SCH (09:07)
[2022-04-25] MEDS: ALVIMOPAN 12 MG CAPSULE (ENTEREG) PO SCH ×2 (09:07→22:17)
[2022-04-25 10:00] VITALS: BP 109/69
[2022-04-25 18:00] VITALS: BP 121/75
[2022-04-25] MEDS: HYDROmorphone HCL 2MG/ML 1ML VIAL IV PRN (19:11)
[2022-04-25 22:00] VITALS: BP 118/82
[2022-04-26] MEDS: IPRATROPIUM 0.5MG/ALBUTEROL 2.5MG INH SOL UD 3ML (DUONEB) NEB SCH ×4 (00:45→20:32)
[2022-04-26] MEDS: KETOROLAC 30 MG/ML 1ML VIAL IV SCH ×5 (01:00→22:33)
[2022-04-26 06:00] VITALS: BP 103/72
[2022-04-26 06:20] LABS: HEMATOCRIT 33.9 % (36.0-47.0); HEMOGLOBIN 11.4 g/dl (12.0-15.5); MEAN CORPUSCULAR HEMOGLOBIN 30.9 pg (27.0-33.0); MEAN CORPUSCULAR HGB CONC 33.6 g/dl (32.0-36.5); MEAN CORPUSCULAR VOLUME 91.9 fl (80.0-96.0); PLATELET COUNT, AUTOMATED 339 10^3/uL (150-450); RED BLOOD COUNT 3.69 10^6/uL (4.00-5.40); WHITE BLOOD COUNT 6.8 10^3/uL (4.0-10.0)
[2022-04-26 06:54] LABS: BLOOD UREA NITROGEN 9 MG/DL (7-18); CALCIUM LEVEL 9.1 MG/DL (8.5-10.1); CARBON DIOXIDE LEVEL 28 MEQ/L (21-32); CHLORIDE LEVEL 107 MEQ/L (98-107); CREATININE FOR GFR 0.63 MG/DL (0.55-1.30); GLOMERULAR FILTRATION RATE > 60.0 (>51); GLUCOSE, FASTING 85 MG/DL (70-100); POTASSIUM SERUM 3.9 MEQ/L (3.5-5.1); SODIUM LEVEL 142 MEQ/L (136-145)
[2022-04-26] MEDS: ALVIMOPAN 12 MG CAPSULE (ENTEREG) PO SCH ×2 (08:23→22:33)
[2022-04-26] MEDS: PANTOPRAZOLE 40MG VIAL IV SCH (08:23)
[2022-04-26] MEDS: HYDROMORPHONE HCL 0.5 MG/ 0.5 ML SYRINGE (J1170 PER 1) IV PRN (08:31)
[2022-04-26] MEDS: ONDANSETRON 4MG 2ML VIAL IV PRN (08:31)
[2022-04-26] MEDS ORDERED: NORCO, ANEXSIA 5/325MG TABLET (HYDROcodone/ACETAMINOPHEN) PO PRN (10:35)
[2022-04-26] MEDS: ENOXAPARIN 40MG/0.4ML SYRINGE (J1650 PER 10MG) SC SCH (11:23)
[2022-04-26] MEDS: NORCO, ANEXSIA 5/325MG TABLET (HYDROcodone/ACETAMINOPHEN) PO PRN (17:12)
[2022-04-26 22:00] VITALS: BP 114/74
[2022-04-27] MEDS: IPRATROPIUM 0.5MG/ALBUTEROL 2.5MG INH SOL UD 3ML (DUONEB) NEB SCH ×4 (01:27→20:35)
[2022-04-27] MEDS: NORCO, ANEXSIA 5/325MG TABLET (HYDROcodone/ACETAMINOPHEN) PO PRN ×3 (04:43→22:10)
[2022-04-27 06:00] VITALS: BP 106/72
[2022-04-27] MEDS: KETOROLAC 30 MG/ML 1ML VIAL IV SCH ×2 (06:37→10:57)
[2022-04-27 06:46] LABS: HEMATOCRIT 33.2 % (36.0-47.0); HEMOGLOBIN 11.1 g/dl (12.0-15.5); MEAN CORPUSCULAR HEMOGLOBIN 30.6 pg (27.0-33.0); MEAN CORPUSCULAR HGB CONC 33.4 g/dl (32.0-36.5); MEAN CORPUSCULAR VOLUME 91.5 fl (80.0-96.0); PLATELET COUNT, AUTOMATED 314 10^3/uL (150-450); RED BLOOD COUNT 3.63 10^6/uL (4.00-5.40); WHITE BLOOD COUNT 5.8 10^3/uL (4.0-10.0)
[2022-04-27 07:47] LABS: BLOOD UREA NITROGEN 12 MG/DL (7-18); CALCIUM LEVEL 8.5 MG/DL (8.5-10.1); CARBON DIOXIDE LEVEL 27 MEQ/L (21-32); CHLORIDE LEVEL 108 MEQ/L (98-107); GLOMERULAR FILTRATION RATE > 60.0 (>51); GLUCOSE, FASTING 84 MG/DL (70-100); POTASSIUM SERUM 4.2 MEQ/L (3.5-5.1); SODIUM LEVEL 142 MEQ/L (136-145)
[2022-04-27] MEDS: ALVIMOPAN 12 MG CAPSULE (ENTEREG) PO SCH ×2 (10:06→22:11)
[2022-04-27] MEDS: ENOXAPARIN 40MG/0.4ML SYRINGE (J1650 PER 10MG) SC SCH (10:07)
[2022-04-27] MEDS: ONDANSETRON 4MG 2ML VIAL IV PRN ×2 (13:25→22:12)
[2022-04-27 13:40] VITALS: BP 134/84
[2022-04-27 21:03] VITALS: BP 133/90
[2022-04-27] MEDS: guaiFENesin ER 600 MG TAB PO PRN (22:11)
[2022-04-28] MEDS: IPRATROPIUM 0.5MG/ALBUTEROL 2.5MG INH SOL UD 3ML (DUONEB) NEB SCH ×4 (00:55→20:18)
[2022-04-28] MEDS ORDERED: KETOROLAC 30 MG/ML 1ML VIAL IV ONE (04:00)
[2022-04-28 06:00] VITALS: BP 118/85
[2022-04-28] MEDS: NORCO, ANEXSIA 5/325MG TABLET (HYDROcodone/ACETAMINOPHEN) PO PRN ×3 (06:25→21:43)
[2022-04-28] MEDS: ONDANSETRON 4MG 2ML VIAL IV PRN ×4 (06:25→21:48)
[2022-04-28 07:14] LABS: HEMOGLOBIN 11.2 g/dl (12.0-15.5); MEAN CORPUSCULAR HEMOGLOBIN 30.4 pg (27.0-33.0); MEAN CORPUSCULAR HGB CONC 32.9 g/dl (32.0-36.5); MEAN CORPUSCULAR VOLUME 92.1 fl (80.0-96.0); PLATELET COUNT, AUTOMATED 368 10^3/uL (150-450); RED BLOOD COUNT 3.69 10^6/uL (4.00-5.40); WHITE BLOOD COUNT 8.4 10^3/uL (4.0-10.0)
[2022-04-28 07:50] LABS: BLOOD UREA NITROGEN 12 MG/DL (7-18); CALCIUM LEVEL 8.8 MG/DL (8.5-10.1); CARBON DIOXIDE LEVEL 30 MEQ/L (21-32); CHLORIDE LEVEL 105 MEQ/L (98-107); CREATININE FOR GFR 0.69 MG/DL (0.55-1.30); GLOMERULAR FILTRATION RATE > 60.0 (>51); GLUCOSE, FASTING 82 MG/DL (70-100); POTASSIUM SERUM 3.9 MEQ/L (3.5-5.1); SODIUM LEVEL 138 MEQ/L (136-145)
[2022-04-28] MEDS: ALVIMOPAN 12 MG CAPSULE (ENTEREG) PO SCH ×2 (10:24→21:41)
[2022-04-28] MEDS: ENOXAPARIN 40MG/0.4ML SYRINGE (J1650 PER 10MG) SC SCH (10:25)
[2022-04-28 15:06] VITALS: BP 118/85
[2022-04-28 20:00] VITALS: BP 128/84
[2022-04-28] MEDS: guaiFENesin ER 600 MG TAB PO PRN (21:49)
[2022-04-29] MEDS: IPRATROPIUM 0.5MG/ALBUTEROL 2.5MG INH SOL UD 3ML (DUONEB) NEB SCH ×3 (01:03→13:22)
[2022-04-29] MEDS: NORCO, ANEXSIA 5/325MG TABLET (HYDROcodone/ACETAMINOPHEN) PO PRN ×2 (03:32→08:34)
[2022-04-29] MEDS: ONDANSETRON 4MG 2ML VIAL IV PRN ×2 (04:00→08:35)
[2022-04-29 06:00] VITALS: BP 126/83
[2022-04-29 06:32] LABS: HEMATOCRIT 33.3 % (36.0-47.0); HEMOGLOBIN 11.2 g/dl (12.0-15.5); MEAN CORPUSCULAR HEMOGLOBIN 31.2 pg (27.0-33.0); MEAN CORPUSCULAR HGB CONC 33.6 g/dl (32.0-36.5); MEAN CORPUSCULAR VOLUME 92.8 fl (80.0-96.0); PLATELET COUNT, AUTOMATED 379 10^3/uL (150-450); RED BLOOD COUNT 3.59 10^6/uL (4.00-5.40); WHITE BLOOD COUNT 6.1 10^3/uL (4.0-10.0)
[2022-04-29 07:06] LABS: BLOOD UREA NITROGEN 9 MG/DL (7-18); CARBON DIOXIDE LEVEL 29 MEQ/L (21-32); CHLORIDE LEVEL 106 MEQ/L (98-107); CREATININE FOR GFR 0.64 MG/DL (0.55-1.30); GLOMERULAR FILTRATION RATE > 60.0 (>51); GLUCOSE, FASTING 92 MG/DL (70-100); POTASSIUM SERUM 3.8 MEQ/L (3.5-5.1); SODIUM LEVEL 139 MEQ/L (136-145)
[2022-04-29] MEDS: ALVIMOPAN 12 MG CAPSULE (ENTEREG) PO SCH (08:34)
[2022-04-29] MEDS: ENOXAPARIN 40MG/0.4ML SYRINGE (J1650 PER 10MG) SC SCH (08:34)
[2022-04-29] MEDS: guaiFENesin ER 600 MG TAB PO PRN (08:41)
[2022-04-29] MEDS ORDERED: DOCUSATE SODIUM 100MG CAPSULE PO SCH (09:00)
[2022-04-29] MEDS ORDERED: HYDR-3715 PO (09:40)
== END 2022-04-29 13:48 | disposition home health service (06) | DRG 221 ==
LOC: M OR 04-22 09:31 → M MSPAV 04-22 17:11
PROVIDERS: ADMIT Surgery; ATTEND Surgery
PROC: 0DQE4ZZ Repair Large Intestine, Percutaneous Endoscopic Approach (ICD-10-PCS; 2022-04-22)
PROC: 0WQF4ZZ Repair Abdominal Wall, Percutaneous Endoscopic Approach (ICD-10-PCS; 2022-04-22)
PROC: 0DBE4ZZ Excision of Large Intestine, Percutaneous Endoscopic Approach (ICD-10-PCS; principal; 2022-04-22 11:10)
DX: Z43.3 Encounter for attention to colostomy (principal); K43.5 Parastomal hernia without obstruction or gangrene

== ENCOUNTER → 2022-04-21 | Outpatient (CLI) | payer BC, OTHER ==
[~2022-04-21] MED LIST changes: +VITA1TAB61 PO
== END ==
LOC: M LABSMTC 10:42
PROVIDERS: ATTEND Anesthesiology
DX: Z01.812 Encounter for preprocedural laboratory examination (principal); Z20.822 Contact with and (suspected) exposure to COVID-19

== ENCOUNTER → 2022-09-02 | Outpatient (CLI) | payer OTHER ==
[~2022-09-02] MED LIST changes: +GASTROGRAFIN SOLUTION 30ML As Ordered ONE; +HYDR-3715 PO; +ISOVUE-370 76% 100ML VIAL As Ordered ONE
== END ==
LOC: M RAD 07:01
PROVIDERS: ATTEND Surgery
DX: R10.84 Generalized abdominal pain (principal)

== ENCOUNTER → 2023-01-16 | Outpatient (CLI) | payer OTHER ==
[~2023-01-16] MED LIST changes: -GASTROGRAFIN SOLUTION 30ML As Ordered ONE; -ISOVUE-370 76% 100ML VIAL As Ordered ONE
== END ==
LOC: M EKG 14:54
PROVIDERS: ATTEND Anesthesiology
DX: Z01.818 Encounter for other preprocedural examination (principal); K57.92 Diverticulitis of intestine, part unspecified, without perforation or abscess without bleeding

== ENCOUNTER 2023-01-20 06:09 | Day surgery (SDC) | payer MEDICAID, OTHER ==
[~2023-01-20] VITALS: Ht 160 cm; Wt 60.5 kg
[~2023-01-20 06:09] MED LIST changes: -AMIT25TA17 PO; +AMIT25TA19 PO; +ceFAZolin SOD 2 GM in IV 1 EA IV ONE
[2023-01-20] MEDS ORDERED: LR 1,000 ML IV SCH ×2 (06:30→09:40)
[2023-01-20] MEDS ORDERED: ROCURONIUM BROMIDE 50MG/5ML VIAL As Ordered ONE ×2 (07:13→08:22)
[2023-01-20] MEDS ORDERED: ONDANSETRON 4MG 2ML VIAL As Ordered ONE (07:13)
[2023-01-20] MEDS ORDERED: propofoL 200 MG/20 ML VIAL As Ordered ONE (07:13)
[2023-01-20] MEDS ORDERED: LIDOCAINE 2% 100MG/5ML SDV (FOR ANES.) As Ordered ONE (07:13)
[2023-01-20] MEDS ORDERED: fentaNYL 100 MCG/2 ML INJECTION As Ordered ONE ×2 (07:14→08:12)
[2023-01-20] MEDS ORDERED: ACETAMINOPHEN 1000MG 100ML IV BAG As Ordered ONE (07:14)
[2023-01-20] MEDS ORDERED: MIDAZOLAM INJ 2MG/2ML VIAL As Ordered ONE (07:14)
[2023-01-20] MEDS ORDERED: dexmedeTOMIDine (4MCG/ML)200MCG/50ML BTL (PRECEDEX) As Ordered ONE (07:40)
[2023-01-20] MEDS ORDERED: SCOPOLAMINE 1MG TRANSDERMAL PATCH As Ordered ONE (07:43)
[2023-01-20] MEDS ORDERED: METOCLOPRAMIDE INJ 10MG/2ML VIAL As Ordered ONE (07:44)
[2023-01-20] MEDS ORDERED: KETOROLAC 60MG 2ML VIAL As Ordered ONE (08:13)
[2023-01-20] MEDS ORDERED: SUGAMMADEX SODIUM 500 MG/5 ML VIAL (BRIDION) As Ordered ONE (08:13)
[2023-01-20] MEDS ORDERED: GLYCOPYRROLATE INJ 0.2 MG/ML 2 ML VIAL As Ordered ONE (08:21)
[2023-01-20] MEDS ORDERED: oxyCODONE 5MG TAB PO PRN (09:40)
[2023-01-20] MEDS ORDERED: HYDROMORPHONE HCL 0.5 MG/ 0.5 ML SYRINGE IV PRN (09:40)
[2023-01-20] MEDS ORDERED: fentaNYL 100 MCG/2 ML INJECTION IV PRN (09:40)
[2023-01-20] MEDS ORDERED: ONDANSETRON 4MG 2ML VIAL IV PRN (09:40)
[2023-01-20 10:37] VITALS: BP 103/54; TEMP 97.5; O2SAT 95
[2023-01-20] MEDS ORDERED: NS 1,000 ML IV SCH (11:45)
[2023-01-20] MEDS ORDERED: NORCO, ANEXSIA 5/325MG TABLET (HYDROcodone/ACETAMINOPHEN) PO PRN (11:45)
[2023-01-20] MEDS ORDERED: KETOROLAC 30 MG/ML 1ML VIAL IV SCH (15:30)
== END 2023-01-20 12:00 | disposition home or self-care (01) ==
LOC: M SDC 06:09
PROVIDERS: ATTEND Surgery
DX: K43.2 Incisional hernia without obstruction or gangrene (principal); K42.9 Umbilical hernia without obstruction or gangrene; K57.92 Diverticulitis of intestine, part unspecified, without perforation or abscess without bleeding; M41.9 Scoliosis, unspecified; F41.9 Anxiety disorder, unspecified; F12.10 Cannabis abuse, uncomplicated
CPT/HCPCS: 49593; C1781; C9290; J0131; J0690; J1100; J1170; J1885; J2250; J2405; J2765; J3010; S2900

== ENCOUNTER → 2023-02-25 | Outpatient (CLI) | payer OTHER ==
[~2023-02-25] MED LIST changes: +AMIT25TA17 PO; -AMIT25TA19 PO; +HYDR-3713; +ONDA4TAB6; -ceFAZolin SOD 2 GM in IV 1 EA IV ONE
== END ==
LOC: M RAD 13:52
PROVIDERS: ATTEND Family Medicine
DX: R10.32 Left lower quadrant pain (principal); Z53.9 Procedure and treatment not carried out, unspecified reason

== ENCOUNTER 2023-02-26 07:06 | Emergency (ER) | payer OTHER ==
[~2023-02-26] VITALS: Ht 160 cm; Wt 61.0 kg
[~2023-02-26 07:06] MED LIST changes: -HYDR-3713; -ONDA4TAB6
[2023-02-26] MEDS ORDERED: HYDR-3713 (07:20)
[2023-02-26] MEDS ORDERED: ONDA4TAB6 (07:20)
[2023-02-26] MEDS ORDERED: ONDANSETRON 4MG 2ML VIAL IV ONE (07:45)
[2023-02-26] MEDS ORDERED: NS 1,000 ML IV ONE (07:45)
[2023-02-26] MEDS ORDERED: MORPHINE 4 MG/ML 1ML VIAL IV ONE (07:45)
[2023-02-26] MEDS ORDERED: ISOVUE-370 76% 100ML VIAL As Ordered ONE (07:53)
[2023-02-26] MEDS ORDERED: fentaNYL 100 MCG/2 ML INJECTION IV ONE (08:05)
[2023-02-26 08:08] LABS: BASO # 0.1 10^3/uL (0.0-0.2); BASO % 0.7 % (0.0-1.0); EOS # 0.2 10^3/uL (0.0-0.5); EOS % 2.2 % (0.0-3.0); HEMATOCRIT 39.1 % (36.0-47.0); HEMOGLOBIN 13.5 g/dl (12.0-15.5); LYMPH # 2.3 10^3/uL (1.5-5.0); LYMPH % 33.8 % (24.0-44.0); MEAN CORPUSCULAR HEMOGLOBIN 31.8 pg (27.0-33.0); MEAN CORPUSCULAR HGB CONC 34.5 g/dl (32.0-36.5); MONO # 0.5 10^3/uL (0.0-0.8); MONO % 7.8 % (2.0-8.0); NEUTROPHILS # 3.8 10^3/uL (1.5-8.5); NEUTROPHILS % 55.1 % (36.0-66.0); PLATELET COUNT, AUTOMATED 322 10^3/uL (150-450); RED BLOOD COUNT 4.25 10^6/uL (4.00-5.40); WHITE BLOOD COUNT 6.8 10^3/uL (4.0-10.0)
[2023-02-26 08:29] LABS: ALBUMIN 3.9 G/DL (3.2-5.2); BILIRUBIN,DIRECT 0.2 MG/DL (<0.4); BILIRUBIN,TOTAL 0.8 MG/DL (0.3-1.2); TOTAL PROTEIN 6.9 G/DL (5.7-8.2)
[2023-02-26] MEDS ORDERED: KETOROLAC 30 MG/ML 1ML VIAL IV ONE (12:05)
[2023-02-26 14:06] VITALS: BP 138/85; TEMP 97.3; O2SAT 99
== END 2023-02-26 14:08 | disposition home or self-care (01) ==
LOC: M ED 07:06
DX: R10.9 Unspecified abdominal pain (principal); K57.92 Diverticulitis of intestine, part unspecified, without perforation or abscess without bleeding; Z79.83 Long term (current) use of bisphosphonates; Z79.1 Long term (current) use of non-steroidal anti-inflammatories (NSAID)
CPT/HCPCS: 36415; 74177; 76830; 76856; 80047; 80076; 81001; 83605; 83690; 85025; 99284; J1885; J2405; J3010; Q9967

== ENCOUNTER → 2023-03-12 | Outpatient (REF) | payer OTHER ==
[~2023-03-12] MED LIST changes: -AMIT25TA17 PO; +AMIT25TA19 PO; +HYDR-3713; +ONDA4TAB6
[2023-03-12 13:40] LABS: BASO # 0.1 10^3/uL (0.0-0.2); BASO % 0.8 % (0.0-1.0); EOS # 0.2 10^3/uL (0.0-0.5); EOS % 2.5 % (0.0-3.0); HEMATOCRIT 42.2 % (36.0-47.0); LYMPH # 2.1 10^3/uL (1.5-5.0); LYMPH % 29.7 % (24.0-44.0); MEAN CORPUSCULAR HGB CONC 33.2 g/dl (32.0-36.5); MEAN CORPUSCULAR VOLUME 93.6 fl (80.0-96.0); MONO # 0.6 10^3/uL (0.0-0.8); MONO % 8.1 % (2.0-8.0); NEUTROPHILS # 4.2 10^3/uL (1.5-8.5); NEUTROPHILS % 58.5 % (36.0-66.0); PLATELET COUNT, AUTOMATED 321 10^3/uL (150-450); RED BLOOD COUNT 4.51 10^6/uL (4.00-5.40); WHITE BLOOD COUNT 7.1 10^3/uL (4.0-10.0)
[2023-03-12 13:58] LABS: ALKALINE PHOSPHATASE 69 U/L (46-116); ALT/SGPT 23 U/L (7.0-40); AST/SGOT 22 U/L (<34); BILIRUBIN,TOTAL 1.3 MG/DL (0.3-1.2); BLOOD UREA NITROGEN 14 MG/DL (9-23); CALCIUM LEVEL 9.3 MG/DL (8.5-10.1); CARBON DIOXIDE LEVEL 29 MMOL/L (20-31); CHLORIDE LEVEL 103 MMOL/L (98-107); CREATININE FOR GFR 0.65 MG/DL (0.55-1.30); GLOMERULAR FILTRATION RATE > 60.0 (>51); GLUCOSE, FASTING 69 MG/DL (60-100); POTASSIUM SERUM 4.1 MMOL/L (3.5-5.1); SODIUM LEVEL 140 MMOL/L (136-145); TOTAL PROTEIN 7.2 G/DL (5.7-8.2)
== END ==
LOC: M SFHCADAM 10:07
PROVIDERS: ATTEND Family Medicine
DX: R10.32 Left lower quadrant pain (principal)

== ENCOUNTER → 2023-04-30 | Outpatient (CLI) | payer OTHER | LOC: M PAIN 13:00 | PROVIDERS: ATTEND Nurse Practitioner Family | DX: R10.30 Lower abdominal pain, unspecified (principal); G89.29 Other chronic pain; M79.10 Myalgia, unspecified site; Z80.3 Family history of malignant neoplasm of breast; Z87.891 Personal history of nicotine dependence; Z79.899 Other long term (current) drug therapy ==

== ENCOUNTER → 2023-05-25 | Outpatient (CLI) | payer OTHER | LOC: M RAD 08:29 | PROVIDERS: ATTEND Family Medicine | DX: Z12.2 Encounter for screening for malignant neoplasm of respiratory organs (principal) ==

== ENCOUNTER → 2023-07-21 | Outpatient (CLI) | payer OTHER | LOC: M PAIN 17:00 | PROVIDERS: ATTEND Nurse Practitioner Family | DX: R10.30 Lower abdominal pain, unspecified (principal); G89.29 Other chronic pain; M79.10 Myalgia, unspecified site; Z80.3 Family history of malignant neoplasm of breast; Z80.8 Family history of malignant neoplasm of other organs or systems; Z87.891 Personal history of nicotine dependence; Z79.899 Other long term (current) drug therapy ==

== ENCOUNTER → 2023-07-22 | Outpatient (REF) | payer OTHER ==
[2023-07-22 16:58] LABS: BASO % 0.4 % (0.0-1.0); EOS # 0.1 10^3/uL (0.0-0.5); EOS % 1.1 % (0.0-3.0); HEMATOCRIT 41.8 % (36.0-47.0); HEMOGLOBIN 14.2 g/dl (12.0-15.5); LYMPH # 2.1 10^3/uL (1.5-5.0); LYMPH % 24.6 % (24.0-44.0); MEAN CORPUSCULAR HEMOGLOBIN 31.4 pg (27.0-33.0); MEAN CORPUSCULAR VOLUME 92.5 fl (80.0-96.0); MONO # 0.7 10^3/uL (0.0-0.8); MONO % 8.3 % (2.0-8.0); NEUTROPHILS # 5.6 10^3/uL (1.5-8.5); NEUTROPHILS % 65.1 % (36.0-66.0); PLATELET COUNT, AUTOMATED 373 10^3/uL (150-450); RED BLOOD COUNT 4.52 10^6/uL (4.00-5.40); WHITE BLOOD COUNT 8.6 10^3/uL (4.0-10.0)
[2023-07-22 17:20] LABS: ALBUMIN 4.2 G/DL (3.2-5.2); ALKALINE PHOSPHATASE 57 U/L (46-116); ALT/SGPT 20 U/L (7.0-40); AST/SGOT 25 U/L (<34); BLOOD UREA NITROGEN 19 MG/DL (9-23); CALCIUM LEVEL 9.6 MG/DL (8.5-10.1); CARBON DIOXIDE LEVEL 27 MMOL/L (20-31); CHLORIDE LEVEL 101 MMOL/L (98-107); CHOLESTEROL LEVEL 226 MG/DL (<200); CREATININE FOR GFR 0.65 MG/DL (0.55-1.30); GLOMERULAR FILTRATION RATE > 60.0 (>51); GLUCOSE, FASTING 78 MG/DL (60-100); HDL CHOLESTEROL 66.3 MG/DL (>40); LDL CHOLESTEROL 141.7 MG/DL (<100); NON-HDL-C 159.7 MG/DL; POTASSIUM SERUM 4.2 MMOL/L (3.5-5.1); SODIUM LEVEL 136 MMOL/L (136-145); TOTAL PROTEIN 7.1 G/DL (5.7-8.2); TRIGLYCERIDES LEVEL 90 MG/DL (<150)
== END ==
LOC: M LABDRWAD 16:00
PROVIDERS: ATTEND Family Medicine
DX: Z00.00 Encounter for general adult medical examination without abnormal findings (principal)

== ENCOUNTER → 2024-07-20 | Outpatient (CLI) | payer OTHER ==
[~2024-07-20] MED LIST changes: +ONDA-282; -ONDA4TAB6
== END ==
LOC: M RAD 16:34
PROVIDERS: ATTEND Family Medicine
DX: Z12.2 Encounter for screening for malignant neoplasm of respiratory organs (principal); Z87.891 Personal history of nicotine dependence